=== PATIENT | male | born 1935 | race Caucasian/White ===

== ENCOUNTER 2016-08-09 15:57 | Inpatient (IN) | payer OTHER, MEDICARE ==
--- NOTE | 2016-08-09 17:00 | EDPHY ---
H & P Time Seen by Provider: 08/09/16 16:00 HPI/ROS: CHIEF COMPLAINT: flu-like symptoms HISTORY OF PRESENT ILLNESS: Patient is a 80-year-old male who presents to the emergency department with flu-like symptoms. His symptoms started on Saturday. He began to have stuffed up nose and congestion. He was taking Mucinex. He felt dehydrated. He had intermittent chills with subjective fever. He went saw his primary care physician on Saturday. He states he had a negative flu swab. He developed increasing sleepiness and was nodding off. Today he has a more notable cough (present for 4 days). Nonproductive. The patient feels "muzzy" and "dozes off frequently." He has tenderness palpation of his left jaw. There is no jaw pain at rest. No chest pain. No shortness of breath. No nausea or vomiting. No diarrhea. Patient states he has minimal discomfort occasionally when urinating. No hematuria. No frequency. REVIEW OF SYSTEMS: My complete review of systems is negative except as mentioned in the HPI. Past Medical/Surgical History: Includes pneumonia, shingles, prostate disease, hypertension, pancreatitis Past surgical history: Prostate surgery Social history: The patient was at home. He does not smoke. Smoking Status: Never smoked Physical Exam: Vitals noted. 37.6, 136/74, 110, 18, 95% on room air GENERAL: Well-appearing, in no acute distress, alert. HEENT: Eyes normal to inspection, normal pharynx, no signs of dehydration. Patient has mild erythema on his forehead. He denies any forehead pain. He has had no recent injury. NECK: No thyromegaly, no lymphadenopathy, supple. RESPIRATORY: Clear to auscultation bilaterally, no rales, rhonchi or wheezing. CVS: Regular rate and rhythm, no rubs, murmurs, or gallops. ABDOMEN: Soft, nontender, nondistended, no organomegaly. [place] BACK: Normal to inspection, no CVA tenderness. SKIN: Otherwise normal color, warm, dry. No pallor. See HEENT exam. EXTREMITIES: No pedal edema, no calf tenderness, no Homans sign or cords, no joint swelling. NEURO/PSYCH: [Alert and oriented x3, normal mood and affect, normal motor sensory exam. Constitutional: Initial Vital Signs Temperature (C) 37.6 C 08/09/16 16:09 Heart Rate 110 H 08/09/16 16:09 Respiratory Rate 18 08/09/16 16:09 Blood Pressure 136/74 H 08/09/16 16:09 O2 Sat (%) 95 08/09/16 16:09 O2 Delivery Mode Room Air Allergies/Adverse Reactions: Sulfa (Sulfonamide Antibiotics) Allergy (Verified 08/09/16 16:38) nausea Home Medications: Medication Instructions Recorded ASPIRIN 08/09/16 Glucosamine 08/09/16 Lisinopril 08/09/16 Saw Holt 08/09/16 Medical Decision Making ED Course/Re-evaluation: I met EMS on arrival in took report from the petal shaper hand. I discussed the plan with the patient and answered all his questions. Laboratory studies, chest x- ray, EKG were ordered. I reviewed the patient's laboratory studies. He was [place] [address]. Sodium is low 124. 18 35: When re-evaluated the patient. On re-examination he continues to have the redness on his forehead. He seems to have more redness over his left cheek and left ear. There is mild swelling over the left cheek. It is unclear if this is allergic reaction or infection. He is not taking any new medications or been exposed to anything out of the ordinary. Because of the increased redness, his fever and white count Rocephin 1 g IV was ordered. The patient was also given vancomycin [address] IV contrast was ordered of his face. I discussed the plan with the patient and answered all his questions. He consents. Patient was given Benadryl 25 mg orally and Pepcid 20 mg IV for his redness. I discussed the patient with the hospitalist service, Dr. Rob. He will admit the patient for further evaluation. I discussed the case with the radiologist. He was concerned with the patient's elevated creatinine and CT with IV contrast. The order was changed to a CT without IV contrast. On recheck the patient was stable. No worsening redness. No respiratory distress. Patient has received both Rocephin and vancomycin. Differential Diagnosis: My differential includes but is not limited to influenza, viral syndrome, pneumonia, bronchitis, electrolyte abnormality, sugar abnormality, ACS, acute AK , dehydration - Data Points Laboratory Results: Laboratory Results 08/09/16 17:00 08/09/16 17:00 08/09/16 08/09/16 17:21 17:00 WBC 12.29 H 10^3/uL (3.80-9.50) RBC 4.61 10^6/uL (4.40-6.38) Hgb 14.9 g/dL (13.7-17.5) Hct 41.6 % (40.0-51.0) MCV 90.2 fL (81.5-99.8) MCH 32.3 pg (27.9-34.1) MCHC 35.8 g/dL (32.4-36.7) RDW 13.4 % (11.5-15.2) Plt Count 172 10^3/uL (150-400) MPV 9.5 fL (8.7-11.7) Neut % (Auto) 91.1 H % (39.3-74.2) Lymph % (Auto) 1.8 L % (15.0-45.0) [place] % (Auto) 5.8 % (4.5-13.0) Eos % (Auto) 0.0 L % (0.6-7.6) Baso % (Auto) 0.2 L % (0.3-1.7) Nucleat RBC Rel Count 0.0 % (0.0-0.2) Absolute Neuts (auto) 11.19 H 10^3/uL (1.70-6.50) Absolute Lymphs (auto) 0.22 L 10^3/uL (1.00-3.00) Absolute Monos (auto) 0.71 10^3/uL (0.30-0.80) Absolute Eos (auto) 0.00 L 10^3/uL (0.03-0.40) Absolute Basos (auto) 0.03 10^3/uL (0.02-0.10) Absolute Nucleated RBC 0.00 10^3/uL (0-0.01) Immature Gran % 1.1 % (0.0-1.1) Immature Gran # 0.14 H 10^3/uL (0.00-0.10) PT 15.6 H SEC (12.0-15.0) INR 1.24 H (0.83-1.16) APTT 36.4 SEC (23.0-38.0) VBG Lactic Acid 1.6 mmol/L (0.7-2.1) Sodium 124 L mEq/L (134-144) Potassium 3.7 mEq/L (3.5-5.2) Chloride 89 L mEq/L (97-110) Carbon Dioxide 25 mEq/l (22-31) Anion Gap 10 mEq/L (8-16) BUN 36 H mg/dL (7-23) Creatinine 1.6 H mg/dL (0.7-1.3) Estimated GFR 42 Glucose 99 mg/dL (70-100) Calcium 8.9 mg/dL (8.5-10.4) Total Bilirubin 1.0 mg/dL (0.1-1.4) Conjugated Bilirubin 0.5 mg/dL (0.0-0.5) Unconjugated Bilirubin 0.5 mg/dL (0.0-1.1) AST 37 IU/L (17-59) ALT 60 IU/L (21-72) Alkaline Phosphatase 99 IU/L (38-126) Total Protein 5.7 L g/dL (6.3-8.2) Albumin 3.4 L g/dL (3.5-5.0) Urine Color YELLOW Urine Appearance CLEAR Urine pH 5.0 (5.0-7.5) Ur Specific [place] 1.013 (1.002-1.030) Urine Protein NEGATIVE (NEGATIVE) Urine Ketones TRACE H (NEGATIVE) Urine Blood 1+ H (NEGATIVE) Urine Nitrate NEGATIVE (NEGATIVE) Urine Bilirubin NEGATIVE (NEGATIVE) Urine Urobilinogen NEGATIVE EU (0.2-1.0) Ur Leukocyte Esterase NEGATIVE (NEGATIVE) Urine RBC 1-3 /hpf (0-3) Urine WBC 1-3 /hpf (0-3) Ur Epithelial Cells NONE SEEN /lpf (NONE-1+) Urine Bacteria TRACE H /hpf (NONE SEEN) Urine Glucose NEGATIVE (NEGATIVE) Influenza Typ A,B (DFA) NEGATIVE FOR FLU (NEGATIVE) Medications Given: Discontinued Medications Acetaminophen (Tylenol) 1,000 mg PO EDNOW ONE Stop: 08/09/16 18:36 Last Admin: 08/09/16 18:36 Dose: 1,000 mg Diphenhydramine HCl (Benadryl) 25 mg PO EDNOW ONE Stop: 08/09/16 19:07 Last Admin: 08/09/16 19:17 Dose: 25 mg Ceftriaxone Sodium/Dextrose (Rocephin 1 Gm (Premix)) 50 mls @ 100 mls/hr IV EDNOW ONE PRN Reason: Protocol Stop: 08/09/16 19:06 Last Admin: 08/09/16 18:42 Dose: 50 mls Famotidine/Sodium Chloride (Pepcid 20 Mg (Premix)) 50 mls @ 200 mls/hr IV ONCE ONE Stop: 08/09/16 19:21 Last Admin: 08/09/16 19:17 Dose: 50 mls Departure - Departure Disposition: [facility] Acute Clinical Impression: Weakness, Rash of face, Hyponatremia Fever Qualifiers: Qualifier Code: (R50.81) Fever presenting with conditions classified elsewhere Condition: Good
[2016-08-09 17:13] LABS: % IMMATURE GRANULYOCYTES 1.1 % (0.0-1.1); ABSOLUTE IMMATURE GRANULOCYTES 0.14 10^3/uL (0.00-0.10); ADD DIFF? NO; ADD MORPH? NO; ADD SCAN? NO; ATYPICAL LYMPHOCYTE FLAG 0 (0-99); FRAGMENT RBC FLAG 10 (0-99); HEMATOCRIT 41.6 % (40.0-51.0); HEMOGLOBIN 14.9 g/dL (13.7-17.5); LEFT SHIFT FLG 30 (0-99); LIPEMIA HEMOLYSIS FLAG 90 (0-99); MEAN CELL HEMOGLOBIN 32.3 pg (27.9-34.1); MEAN CELL HEMOGLOBIN CONCENTR. 35.8 g/dL (32.4-36.7); MEAN CELL VOLUME 90.2 fL (81.5-99.8); MEAN PLATELET VOLUME 9.5 fL (8.7-11.7); PLATELET CLUMPS FLAG 10 (0-99); PLATELET COUNT 172 10^3/uL (150-400); RED BLOOD CELL COUNT 4.61 10^6/uL (4.40-6.38); RED CELL DISTRIBUTION WIDTH 13.4 % (11.5-15.2)
[2016-08-09 17:20] LABS: INR 1.24 (0.83-1.16); PROTIME(PATIENT) 15.6 SEC (12.0-15.0)
[2016-08-09 17:21] LABS: ALANINE AMINOTRANSFERASE 60 IU/L (21-72); ALBUMIN 3.4 g/dL (3.5-5.0); ALKALINE PHOSPHATASE 99 IU/L (38-126); ANION GAP 10 mEq/L (8-16); APTT 36.4 SEC (23.0-38.0); ASPARTATE AMINOTRANSFERASE 37 IU/L (17-59); BILIRUBIN-CONJUGATED 0.5 mg/dL (0.0-0.5); BILIRUBIN-UNCONJUGATED 0.5 mg/dL (0.0-1.1); CALCIUM 8.9 mg/dL (8.5-10.4); CARBON DIOXIDE 25 mEq/l (22-31); CHLORIDE 89 mEq/L (97-110); CREATININE 1.6 mg/dL (0.7-1.3); GLOMERULAR FILTRATION RATE 42; GLUCOSE 99 mg/dL (70-100); POTASSIUM 3.7 mEq/L (3.5-5.2); SODIUM 124 mEq/L (134-144); TOTAL PROTEIN 5.7 g/dL (6.3-8.2)
--- NOTE | 2016-08-09 17:31 | DX ---
Chest, PA and Lateral History: Weakness, fatigue, flulike symptoms, suspected infection, sepsis protocol Comparison: none Findings: There is mild bronchial wall thickening. Lung volumes are mildly prominent. There is no foc al infiltrate, consolidation or pleural effusion. Heart size is normal. There is no mass or adenopat hy. Bilateral symmetric nipple shadows are present. Impression: Airways disease.
--- NOTE | 2016-08-09 17:41 | CPEKG ---
Heart Rate: 102 RR Interval: 588 P-R Interval: 172 QRSD Interval: 76 QT Interval: 320 QTC Interval: 417 P Delphos: 78 QRS Delphos: 14 T Wave Delphos: 83 EKG Severity - ABNORMAL ECG - EKG Impression: SINUS TACHYCARDIA EKG Impression: LOW VOLTAGE IN FRONTAL LEADS EKG Impression: ABNORMAL T, CONSIDER ISCHEMIA, LATERAL LEADS Electronically Signed By: Magda Alexis 09-Aug-2016 23:12:35
[2016-08-09 17:42] LABS: COLOR YELLOW; LEUKOCYTE ESTERASE,URINE NEGATIVE (NEGATIVE); NITRITE,URINE NEGATIVE (NEGATIVE)
[2016-08-09 17:54] LABS: BACTERIA TRACE /hpf (NONE SEEN)
[2016-08-09] MEDS ORDERED: ACETAMINOPHEN 500 MG TAB ONE (18:29)
[2016-08-09] MEDS ORDERED: ACETAMINOPHEN 500 MG TAB PO ONE (18:35)
[2016-08-09] MEDS ORDERED: VANCOMYCIN HCL/NORMAL SALINE 250 ML IV ONE (18:37)
[2016-08-09] MEDS ORDERED: diphenhydrAMINE 25 MG CAP PO ONE ×2 (19:06→19:09)
[2016-08-09] MEDS ORDERED: FAMOTIDINE 20 MG/NACL 50 ML IV ONE (19:07)
[2016-08-09] MEDS ORDERED: IOPAMIDOL (ISOVUE-300) 50 ML VIAL IV ONE ×3 (19:15→19:16)
--- NOTE | 2016-08-09 20:35 | CT ---
CT of the Face, without contrast Indication: Left face, jaw and cheek cellulitis Technique: 0.625 mm thick collimated slices were obtained through the face from just below the lizbeth ible to above the frontal sinuses. The data was reconstructed in the sagittal and coronal planes. Dos e reduction techniques were utilized. Findings: There is soft tissue edema the region of the left cheek, left premaxillary area and prefro ntal region, without obvious localized abscess or underlying bone lysis, sclerosis or periostitis. Th e left orbit and intraorbital contents are normal.. The paranasal and mastoid sinuses are well aerat ed. There are no sinus air-fluid levels or bone destruction. There is no mandibular or maxillary jeremy odontal disease. There is limited streak artifact related to dental hardware. There is atheroscleroti c calcification of left greater than right carotid arteries. There is no pathologic cervical adenopa thy. Fat in the pterygopalatine fossa is symmetric and normal. The deep mandibular spaces and some zy gomatic arch soft tissues are symmetric and normal. There is chronic degenerative change of the left temporomandibular joint with eburnation of the glenoid fossae and progressive remottling of the left condylar head. 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 Impression: 1. Cellulitis without obvious abscess or underlying cause. The lack of IV contrast limits the ability to detect a small abscess. 2. Chronic left temporomandibular joint degeneration. General information for patients regarding this examination can be found at [email or web address]. If you have questions or comments about this report, please contact me at [phone] (hospital) or [phone] (cell).
[2016-08-09] MEDS ORDERED: ONDANSETRON 4 MG/2 ML VIAL IVP PRN (22:06)
[2016-08-09] MEDS ORDERED: HYDROCODONE/APAP 5/325 TAB PO PRN (22:06)
[2016-08-09] MEDS ORDERED: LORazepam 2 MG/ML INJ IVP PRN (22:06)
[2016-08-09] MEDS ORDERED: ONDANSETRON DISINTEGRATING 4 MG TAB PO PRN (22:06)
[2016-08-09] MEDS ORDERED: LORazepam 0.5 MG TAB PO PRN (22:06)
[2016-08-09] MEDS ORDERED: NS W/ 20 KCl/L 1,000 ML IV SCH (22:15)
--- NOTE | 2016-08-09 23:00 | GHP ---
[f rep st] HISTORY AND PHYSICAL DATE OF ADMISSION: 08/09/2016 CHIEF COMPLAINT: Cough and fever. HPI: This is an 80-year-old gentleman who presents with a complaint of 3 to 4 days of cough, fever, nasal congestion. He reports he has had intermittent chills and a subjective fever. He saw his [facility] physician on Saturday to start. It resulted in a negative flu swab. Since then, he has de veloped increasing sleepiness and feels he is weak. The illness is notable for a persistent cough, w hich is primarily nonproductive, over the last 4 days. In addition, within 1 day SAND ANALYST day he has deve loped left ear tenderness and pain. Three weeks SAND ANALYST he had the left ear cleaned of wax with a curett e. It resulted in a slight breanna in the ear and he had some bleeding, which was cauterized then 3 day s after the initial cleaning. The area has been fine up until 1 day SAND ANALYST, when he has noted he has te nderness, swelling, and pain on the left side of his face and around his ear. There is no further dr sevilla. Except as noted above, he otherwise describes himself as well and healthy. He has very few health pr oblems. He denies having chest pain, nausea, vomiting, abdominal pain, hematemesis, hematochezia. Rasat pollard had a TURP many years ago and has good urinary outflow and no dysuria. PAST MEDICAL HISTORY: Denies asthma. There is a positive history of hypertension. No history of di abetes or kidney problems. One episode of pneumonia in 2006. PAST SURGICAL HISTORY: A colonoscopy approximately in 1999, in which he had no polyps. He had a pro statectomy in approximately 2004, 2005. ALLERGIES: Sulfa drugs which cause gastrointestinal discomfort. This dates to when he was a child. CURRENT MEDICATIONS: Mucinex, herbal supplementation, aspirin 325 mg, and lisinopril 10/12.5 mg tabl et in the form of Zestoretic. FAMILY HISTORY: Noncontributory. There is no prior history of coronary artery disease. REVIEW OF SYSTEMS: Except as noted above, a 10-point review of systems is entirely negative. SOCIAL HISTORY: He is recently . Lives alone. Does not smoke or drink, and does not use karen gs. PHYSICAL EXAM: GENERAL: This is a pleasant elderly gentleman who appears slightly uncomfortable. V ITAL SIGNS: His blood pressure is normal, pulse rate is 80 and regular, respirations 14 and unlabor ed. He has normal saturation on room air and is afebrile. HEENT: Significant for redness about the left side of his scalp and the left side of his face, with edema and swelling of the left ear pinna and external canal. Examination of the external canal shows that there is cerumen or blood deep with in the canal, and it is tender to pull on the external canal. The right ear is abel with a abel tymp anic membrane. NECK: Supple without meningismus. There is no significant adenopathy palpated in th e submandibular, cervical, or axillary regions. The supraclavicular region in particular is nontende r, and no nodes are noted. CHEST: Chest wall is nontender to palpation. LUNGS: Clear to P and A w ithout wheezing or rales. HEART: Singular S1 and S2. No murmur or gallop. ABDOMEN: Nontender, be nign without masses, tenderness, organomegaly. EXTREMITIES: No edema, cyanosis, or clubbing. LABORATORY: WBC mildly elevated at 12,200. Lactic acid is normal at 1.6. Chemistry panel shows hyp onatremia with a sodium of 124, a normal anion gap of 10. Evidence of acute kidney injury with a cre atinine of 1.6, and an albumin slightly low at 3.4. Urinalysis is entirely normal. Serology shows h e is negative for influenza A and B. IMAGING: Chest x-ray reviewed personally by myself shows normal lung cobos without infiltrate, and a normal-sized heart. Electrocardiogram shows a sinus tachycardia at approximately 102. There is low voltage in the fronta l plane, and there is slightly abnormal T-wave configuration, with suggestion of ST-segment depressio n in V2 and V3. This could suggest ischemia in the lateral leads. ASSESSMENT: 1. Acute febrile illness characterized by 4 days of cough without sputum production, subjective feve r, and some chills. He has a negative flu swab both at the physician's office and here in this faci lity. It is possible this could represent a mycoplasma infection. He has no history of underlying l patt disease, and his chest x-ray is clear. He has a mild leukocytosis which is nonspecific. Given t he initial presentation was clearly for a respiratory infection, we will treat him with Rocephin and azithromycin. The latter will cover for atypicals such as mycoplasma. At this time, he is not cough ing, which would be more characteristic of a mycoplasma infection, but if cough does become prominent it will be treated either with Tessalon Perles or with possibly codeine. 2. Left facial erythema and edema and possible cellulitis. Historically, 3 weeks ago he had a curet te cleaning of wax from his ears, resulting in bleeding. The bleeding was cauterized 3 days followin g that. If has not bothered him up until 1 or 2 days prior to admission. It is possible it is a fac ial cellulitis. The area is swollen and tender. Thus, I have placed him on vancomycin, and will obt ain an ENT consultation in the morning. 3. History of hypertension. Currently, he is normotensive and we will continue his usual antihypert ensive medications. 4. Acute kidney injury. He has an elevated creatinine, which may represent prerenal azotemia. He w ill be given IV fluids, and we will follow this for resolution. 5. Hyponatremia. This may represent acute pulmonary illness along with free water intake rather markus n eating. Again, we will watch this. He will receive IV fluids in the form of normal saline, and ho pefully this will resolve on its own in the course of treatment. 6. Code status is full. 7. DVT prophylaxis will be with Lovenox. 8. Billing. The patient will be admitted to inpatient as it would require more than 2 nights' stay to resolve his medical problems, and obtain an ENT consultation with resolution. /[id number]/MODL
[2016-08-09] MEDS: AZITHROMYCIN IV 500 MG in D5W 250 ML IV SCH (23:24)
[2016-08-10] MEDS: HEPARIN 5,000 UNIT/0.5 ML SYR SC SCH ×3 (05:18→22:13)
[2016-08-10] MEDS: IPRATROPIUM/ALBUTEROL 3 ML DEYVIAL IH SCH ×4 (05:20→21:23)
[2016-08-10] MEDS: guaiFENesin 600 MG TAB.ER PO PRN ×2 (05:34→19:19)
[2016-08-10 05:42] LABS: % IMMATURE GRANULYOCYTES 0.9 % (0.0-1.1); ABSOLUTE IMMATURE GRANULOCYTES 0.11 10^3/uL (0.00-0.10); ADD DIFF? NO; ADD MORPH? NO; ADD SCAN? NO; ATYPICAL LYMPHOCYTE FLAG 0 (0-99); FRAGMENT RBC FLAG 0 (0-99); HEMATOCRIT 40.2 % (40.0-51.0); LEFT SHIFT FLG 50 (0-99); LIPEMIA HEMOLYSIS FLAG 90 (0-99); MEAN CELL HEMOGLOBIN 31.7 pg (27.9-34.1); MEAN CELL HEMOGLOBIN CONCENTR. 34.8 g/dL (32.4-36.7); MEAN PLATELET VOLUME 9.3 fL (8.7-11.7); PLATELET CLUMPS FLAG 0 (0-99); PLATELET COUNT 151 10^3/uL (150-400); RED BLOOD CELL COUNT 4.42 10^6/uL (4.40-6.38); RED CELL DISTRIBUTION WIDTH 13.4 % (11.5-15.2)
[2016-08-10 06:06] LABS: ALANINE AMINOTRANSFERASE 54 IU/L (21-72); ALBUMIN 3.1 g/dL (3.5-5.0); ALKALINE PHOSPHATASE 101 IU/L (38-126); ANION GAP 10 mEq/L (8-16); ASPARTATE AMINOTRANSFERASE 30 IU/L (17-59); BILIRUBIN,TOTAL 0.9 mg/dL (0.1-1.4); CALCIUM 8.7 mg/dL (8.5-10.4); CARBON DIOXIDE 25 mEq/l (22-31); CHLORIDE 92 mEq/L (97-110); CREATININE 1.6 mg/dL (0.7-1.3); GLOMERULAR FILTRATION RATE 42; GLUCOSE 86 mg/dL (70-100); POTASSIUM 3.5 mEq/L (3.5-5.2); SODIUM 127 mEq/L (134-144); TOTAL PROTEIN 5.3 g/dL (6.3-8.2)
[2016-08-10] MEDS: MULTIVITAMINS 1 EACH TAB PO SCH (09:37)
[2016-08-10] MEDS: LISINOPRIL/HCTZ 10/12.5 MG 1 EA TAB PO SCH (09:37)
[2016-08-10] MEDS: AZITHROMYCIN IV 500 MG in D5W 250 ML IV SCH (09:38)
--- NOTE | 2016-08-10 14:19 | HOSPPROG ---
Hospitalist Progress Note Assessment/Plan: 80-year-old male presents emergency room complaints of cough and fever. This is my 1st encounter with the patient, chart reviewed. Patient care discussed with Dr. Su Ritchie of Infectious Disease. # upper respiratory infection Continue supportive management X-ray does not demonstrate definitive pneumonia Patient not complaining of cough today Consider changing antibiotic therapy # facial cellulitis On IV antibiotics Consult Infectious Disease Ear nose and throat consulted # history of hypertension Currently well controlled # hyponatremia Likely secondary to mild dehydration Continue IV fluids Check labs in the morning # acute kidney injury Patient's baseline kidney function on clear Continue to follow laboratory evaluation Continue fluid #History of epistaxis None currently # leukocytosis Acute response # disposition Unclear given need for further IV antibiotic therapy and evaluation Subjective: Feeling better today. No specific complaints of cough. Facial pain less than yesterday. Objective: Vital Signs Temp Pulse Resp BP Pulse Ox 37.3 C 76 15 107/63 96 08/10/16 11:46 08/10/16 12:29 08/10/16 12:29 08/10/16 11:46 08/10/16 12:29 Laboratory Results 08/10/16 05:22 08/10/16 05:22 08/09/16 08/10/16 08/11/16 05:59 05:59 05:59 Intake Total 250 Balance 250 PT 15.6 SEC (12.0-15.0) H 08/09/16 17:00 INR 1.24 (0.83-1.16) H 08/09/16 17:00 - Physical Exam Constitutional: no apparent distress, appears nourished, not in pain Eyes: PERRL, anicteric sclera, EOMI Ears, Nose, Mouth, Throat: moist mucous membranes, hearing normal, other ( Swelling), No ears appear normal Cardiovascular: regular rate and rhythym, tachycardia, No JVD, No edema Respiratory: no respiratory distress, no rales or rhonchi, reduced air movement Gastrointestinal: normoactive bowel sounds, No tenderness, No ascites Skin: warm, no fluctuance, erythema Musculoskeletal: normal joint ROM, no joint effusions, generalized weakness Neurologic: AAOx3 Psychiatric: interacting appropriately, not anxious, not encephalopathic ICD10 Worksheet Patient Problems: Problems Problem Status Diagnosed Fever Acute Hyponatremia Acute Rash of face Acute Weakness Acute
[2016-08-10] MEDS: ASPIRIN EC 325 MG TAB PO SCH (16:11)
[2016-08-10] MEDS: ACETAMINOPHEN 325 MG TAB PO PRN (20:27)
--- NOTE | 2016-08-11 00:43 | GCON ---
[f rep st] CONSULTATION INFECTIOUS DISEASE CONSULTATION DATE OF CONSULTATION: 08/10/2016 REASON FOR CONSULTATION: Left facial cellulitis. HISTORY OF PRESENT ILLNESS: This is an 80-year-old male who was in his usual health until approximately 2 days prior to admission when he started developing malaise, fever to 103, and started noticing his left face swelling. Yesterday evening he felt extreme malaise, worsening swelling. Therefore, he took an ambulance to the emergency room due to the bad weather outside. A couple weeks prior to the onset of this, patient did have a trauma to the left ear associated with curetting the wax out of his ear associated with bleeding. Otherwise, he denies any specific trauma. He has had some intermittent drainage from this ear including blood as well as serous drainage, currently is serous drainage. He has had rhinorrhea and intermittent epistaxis x1 week, mild dry cough. He does not feel short of breath and his symptoms do not feel similar to prior episodes of pneumonia. He denies GI symptoms and generally feels that he is emptying his bladder appropriately without discomfort. Patient denies dental pain. PAST MEDICAL AND SURGICAL HISTORY: 1. Past history of pneumonia. 2. Bacteremia in childhood. 3. 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 4. Pancreatitis 12 years ago that resulted in renal insufficiency. 5. Renal insufficiency. 6. Shingles. 7. Tonsils and adenoids in childhood. ALLERGIES: Sulfa causes GI discomfort. MEDICATIONS: At home: Mucinex herbal supplementation, aspirin, lisinopril. Antibiotics in-house include 1 dose of ceftriaxone, azithromycin 500 mg, vancomycin 1 g. FAMILY HISTORY: Negative for coronary artery disease. SOCIAL HISTORY: Patient is recently in June of 2016 after a 60- year marriage. No tobacco or alcohol. 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 He is currently living alone. PHYSICAL EXAM: VITAL SIGNS: Blood pressure 107/63, heart rate 79, respiratory rate 16, saturation 93% on room air. Temperature 37. 3, while hospitalized his T-max is 38. GENERAL: This is a very pleasant male who appears younger than his stated age. HEENT: Extraocular muscles are intact. No conjunctival hemorrhages. Oropharynx moist mucous membranes. Good dentition. His cranial nerves are intact. It is noticeable that he has erythema of the left face including the left upper eyelid and submental and immediately top portion of his left neck, and he has significant swelling of his left ear. Minimal tenderness to palpation. No fluctuance or lymphadenopathy was palpated. NECK: No meningismus, it was supple. No lymphadenopathy. CARDIOVASCULAR: Regular rate and rhythm. No murmurs. CHEST: Clear to auscultation bilaterally. ABDOMEN: Soft, nontender. Bowel sounds are present. EXTREMITIES: No clubbing , cyanosis, or edema. No joint swelling. No splinter hemorrhages or Janeway Lesions. NEUROLOGICALLY: As above, his cranial nerves were intact. Motor was intact. In fact, the patient has been doing calf raises while he has been in his room. LABORATORY: White count today 11.8, yesterday 12.2. Creatinine is 1.6 which patient reports is his baseline. Sodium was 127, AST 30, ALT 54, albumin 3.1. TSH 1.4. Urinalysis showed no pyuria. Influenza DFA was negative. Chest x-ray showed no focal infiltrates with some airway disease. CT of his face showed no definitive sinus disease, showed cellulitis without underlying abscess or sinus abnormalities, but no IV contrast was given. ASSESSMENT AND PLAN: This is an 80-year-old, relatively healthy male who presents with cellulitis of the left face and ear small are on neck, very bright in appearance, somewhat erysipelas-like. The patient has not received antibiotics in over 10 years. Therefore his risk for MRSA or more resistant GNR such as Pseudomonas is fairly low. Clinically appears to be streptococcal mediated. Would recommend monotherapy with ceftriaxone 1 g IV daily. I would discontinue azithromycin and vancomycin. ENT to evaluate further. I do not have an otoscope today to examine his TM and will try to follow up in next couple days. Await ENT consult. We will continue to follow on a daily basis. Thank you for this consult. /[id number]/MODL MTDD
[2016-08-11] MEDS: IPRATROPIUM/ALBUTEROL 3 ML DEYVIAL IH SCH (05:07)
[2016-08-11 05:40] LABS: % IMMATURE GRANULYOCYTES 0.8 % (0.0-1.1); ABSOLUTE IMMATURE GRANULOCYTES 0.07 10^3/uL (0.00-0.10); ADD DIFF? NO; ADD MORPH? NO; ADD SCAN? NO; ATYPICAL LYMPHOCYTE FLAG 20 (0-99); FRAGMENT RBC FLAG 0 (0-99); HEMATOCRIT 36.9 % (40.0-51.0); HEMOGLOBIN 13.2 g/dL (13.7-17.5); LEFT SHIFT FLG 10 (0-99); LIPEMIA HEMOLYSIS FLAG 90 (0-99); MEAN CELL HEMOGLOBIN CONCENTR. 35.8 g/dL (32.4-36.7); MEAN CELL VOLUME 89.6 fL (81.5-99.8); MEAN PLATELET VOLUME 9.6 fL (8.7-11.7); PLATELET CLUMPS FLAG 20 (0-99); PLATELET COUNT 158 10^3/uL (150-400); RED BLOOD CELL COUNT 4.12 10^6/uL (4.40-6.38); RED CELL DISTRIBUTION WIDTH 13.4 % (11.5-15.2)
[2016-08-11] MEDS: HEPARIN 5,000 UNIT/0.5 ML SYR SC SCH ×3 (05:43→23:54)
[2016-08-11 05:56] LABS: ANION GAP 11 mEq/L (8-16); CALCIUM 8.7 mg/dL (8.5-10.4); CARBON DIOXIDE 22 mEq/l (22-31); CHLORIDE 98 mEq/L (97-110); CREATININE 1.4 mg/dL (0.7-1.3); GLOMERULAR FILTRATION RATE 49; GLUCOSE 87 mg/dL (70-100); POTASSIUM 3.9 mEq/L (3.5-5.2); SODIUM 131 mEq/L (134-144)
[2016-08-11] MEDS: LISINOPRIL/HCTZ 10/12.5 MG 1 EA TAB PO SCH (08:50)
[2016-08-11] MEDS: MULTIVITAMINS 1 EACH TAB PO SCH (08:50)
[2016-08-11] MEDS: guaiFENesin 600 MG TAB.ER PO PRN (08:50)
[2016-08-11] MEDS: CIPROFLOXACIN HCL/DEXAMETH 7.5 ML OTIC DROPS LEFTEAR SCH ×2 (13:27→20:24)
--- NOTE | 2016-08-11 13:41 | HOSPPROG ---
Hospitalist Progress Note Assessment/Plan: 80-year-old male presents emergency room complaints of cough and fever. Patient discussed with ENT. # upper respiratory infection Continue supportive management X-ray does not demonstrate definitive pneumonia Patient not complaining of cough today # facial cellulitis On IV antibiotics, CTX Appreciate Infectious Disease Ear nose and throat consulted # history of hypertension Currently well controlled # hyponatremia Likely secondary to mild dehydration Better with IV fluids Check labs in the morning # acute kidney injury Patient's baseline kidney function unclear Continue to follow laboratory evaluation better today #History of epistaxis None currently # leukocytosis Acute response resolved # disposition Unclear given need for further IV antibiotic therapy and evaluation Subjective: Pt complaining of ear bleeding. Pain better. Feeling better today. Objective: Vital Signs Temp Pulse Resp BP Pulse Ox 37.0 C 73 16 111/64 96 08/11/16 08:00 08/11/16 08:00 08/11/16 08:00 08/11/16 08:00 08/11/16 08:00 Laboratory Results 08/11/16 04:59 08/11/16 04:59 08/10/16 08/11/16 08/12/16 05:59 05:59 05:59 Intake Total 250 850 Balance 250 850 PT 15.6 SEC (12.0-15.0) H 08/09/16 17:00 INR 1.24 (0.83-1.16) H 08/09/16 17:00 - Physical Exam Constitutional: no apparent distress, appears nourished, not in pain Eyes: PERRL, anicteric sclera, EOMI Ears, Nose, Mouth, Throat: moist mucous membranes, hearing normal, No ears appear normal Cardiovascular: regular rate and rhythym, No JVD, No edema Respiratory: no respiratory distress, no rales or rhonchi, clear to auscultation Gastrointestinal: No tenderness, No ascites, No guarding Skin: warm, no fluctuance, erythema Musculoskeletal: full muscle strength, normal joint ROM, no joint effusions Neurologic: AAOx3 Psychiatric: interacting appropriately, not anxious, not encephalopathic ICD10 Worksheet Patient Problems: Problems Problem Status Diagnosed Fever Acute Hyponatremia Acute Rash of face Acute Weakness Acute
--- NOTE | 2016-08-11 14:35 | PCMIDPN ---
Assessment/Plan: Assessment/Plan: 1. Left face/ear cellulitis: - Improving on Ceftriaxone. More concentrated inappearance but other areas are improving - Appreciate ENT's eval/assistance in care. A wick is in the ear now. - Ct face reviewed: no sinus ds. no involvement of orbit or intraorbital contents. no obvious abscess identified. -Blood cx ngtd -wbc improved. -Continue with current care, with close monitoring. -Care coordinated with hospitalist team MEds ceftraixone 1g daily-08/10/16 Subjective: Afebrile. Denies sob, abd pain or diarrhea. Denies eye pain or restriction in eye movements, or change in vision. left ear with mild discomfort. Feels better overall Objective: Vital Signs Temp Pulse Resp BP Pulse Ox 37.0 C 73 16 111/64 96 08/11/16 08:00 08/11/16 08:00 08/11/16 08:00 08/11/16 08:00 08/11/16 08:00 Laboratory Results 08/11/16 04:59 08/11/16 04:59 08/10/16 08/11/16 08/12/16 05:59 05:59 05:59 Intake Total 250 850 Balance 250 850 - Physical Exam General Appearance: alert, no apparent distress EENT: other (no pain with eye movement and no restriction. mild swelling around left eye. left ear is swollen) Respiratory: lungs clear Cardiac/Chest: regular rate, rhythm Extremities: No swelling Abdomen: normal bowel sounds, non-tender, soft, No distended Skin: erythema (left face with most concentrated erythema to mid to upper face, including over eyes. no restrictive eye movements. no conjunctival injections. left ear swollen and erythematous. wick noted within ear. peeling of skin over face/scalp.) ICD10 Worksheet Patient Problems: Problems Problem Status Diagnosed Fever Acute Hyponatremia Acute Rash of face Acute Weakness Acute
--- NOTE | 2016-08-11 17:20 | GCON ---
[f rep st] CONSULTATION HISTORY OF PRESENT ILLNESS: This is an 80-year-old gentleman who presents with a complaint of 3 to 4-day history of cough, fever, and nasal congestion. He also complains of facial swelling, as well as left ear tenderness. The patient was admitted to the hospital on August 09, 2016, for IV antibiotics. The patient has noted improvement in the facial swelling; however, he continues to note left ear complaints. ENT is consulted for evaluation of the left ear. The patient notes that approximately 3 weeks ago, he had his left ear cleaned of wax with a curette. He does note at the time that he developed some bleeding due to instrumentation. Several days later, given the bleeding, he presented to his primary care physician where he requested cautery of the external auditory canal on the left. The patient notes that this seemed to improve the bleeding; however, he did develop increased swelling, as well as otorrhea. Over the last day or two, the patient has noted increased left-sided bloody otorrhea. PAST MEDICAL HISTORY: Denies asthma. Positive history of hypertension. He denies a history of diabetes or other kidney problems. ALLERGIES: Sulfa drugs, which caused GI discomfort. FAMILY HISTORY: Noncontributory. SOCIAL HISTORY: Does not smoke or drink. PHYSICAL EXAM: GENERAL APPEARANCE: This is a pleasant 80-year-old gentleman who is in no acute distress. HEAD: Face does show swelling/erythema of the left side around the patient's temporomandibular joint extending to the infraorbital region. There are no vesicles. EARS: The left ear was examined and found to have significantly erythematous and edematous auricle, as well as external auditory canal. There is no ear proptosis. No mastoid tenderness or bogginess. OTOLOGIC: Exam revealed the tympanic membrane to be intact. He does have significant edema of the external auditory canal with mild otorrhea. Given the amount of edema that the patient has, I did elect to place a wick in the external auditory canal to facilitate drop administration. OROPHARYNX: normal. NEUROLOGIC: Exam shows the facial nerve to be intact. ASSESSMENT AND PLAN: This is an 80-year-old male who presents with left-sided facial cellulitis likely secondary to left-sided otitis externa. The patient does note significant improvement since starting IV antibiotics on admission. I was able to visualize the tympanic membrane on the left, and it appears intact ; however, given the amount of swelling in the external auditory canal, I did elect to place a wick. The wick will likely fall out over the next several days as the swelling reduces. 1. Care per the hospitalist and Infectious Disease. Would recommend Ciprodex ear drops with directions of 4 drops to the left ear twice daily for a total of 1 week. 2. Continue IV antibiotics while in-house. Given amount of swelling the patient does have, would recommend Pseudomonas coverage on discharge, as well, for a total of a 10-day course. 3. If swelling continues, could add IV Decadron 8 mg for a dose or two every 8 hours. 4. If swelling continues or patient fails to continue to improve, would recommend CT temporal bones, though the patient states he has made significant improvement over the last 24 hours. 5. Please give the patient our office phone number, on discharge so that he can follow up with our office. Patient should follow-up with our office this coming week. Will follow along peripherally, please call if there are any changes. Thank you so much for allowing us to participate in the care of this patient. If you have any further questions, please do not hesitate to contact me. /[id number]/MODL MTDD
[2016-08-11] MEDS: ASPIRIN EC 325 MG TAB PO SCH (17:34)
[2016-08-11] MEDS: ACETAMINOPHEN 325 MG TAB PO PRN (20:24)
[2016-08-12] MEDS: HEPARIN 5,000 UNIT/0.5 ML SYR SC SCH ×3 (05:55→21:58)
[2016-08-12] MEDS: MULTIVITAMINS 1 EACH TAB PO SCH (08:33)
[2016-08-12] MEDS: LISINOPRIL/HCTZ 10/12.5 MG 1 EA TAB PO SCH (08:33)
[2016-08-12] MEDS: CIPROFLOXACIN HCL/DEXAMETH 7.5 ML OTIC DROPS LEFTEAR SCH ×2 (08:34→21:58)
--- NOTE | 2016-08-12 12:52 | HOSPPROG ---
Hospitalist Progress Note Assessment/Plan: 80-year-old male presents emergency room complaints of cough and fever. # upper respiratory infection Continue supportive management X-ray does not demonstrate definitive pneumonia Patient not complaining of cough today # facial cellulitis On IV antibiotics, CTX Appreciate Infectious Disease Appreciate ENT consult # history of hypertension Currently well controlled # hyponatremia Likely secondary to mild dehydration Better with IV fluids # acute kidney injury Patient's baseline kidney function unclear Continue to follow laboratory evaluation better #History of epistaxis None currently # leukocytosis Acute response resolved # disposition Unclear given need for further IV antibiotic therapy and evaluation Significantly improved today Await Infectious Disease recommendations for antibiotic therapy Reviewed with ID Subjective: Feeling better today. Less left ear pain. Slept well last night. Objective: Vital Signs Temp Pulse Resp BP Pulse Ox 36.6 C 71 20 121/71 H 92 08/12/16 07:31 08/12/16 07:31 08/12/16 07:31 08/12/16 07:31 08/12/16 07:31 Laboratory Results 08/11/16 04:59 08/11/16 04:59 08/11/16 08/12/16 08/13/16 05:59 05:59 05:59 Intake Total 850 1550 Balance 850 1550 PT 15.6 SEC (12.0-15.0) H 08/09/16 17:00 INR 1.24 (0.83-1.16) H 08/09/16 17:00 - Physical Exam Constitutional: no apparent distress, appears nourished, not in pain Eyes: PERRL, anicteric sclera, EOMI Ears, Nose, Mouth, Throat: moist mucous membranes, hearing normal, No ears appear normal Cardiovascular: regular rate and rhythym, No JVD, No edema Respiratory: no respiratory distress, no rales or rhonchi, reduced air movement Gastrointestinal: No tenderness, No ascites, No guarding Skin: warm, erythema, other (Has sloughing) Musculoskeletal: normal joint ROM, no joint effusions, generalized weakness Neurologic: AAOx3 Psychiatric: interacting appropriately, not anxious, not encephalopathic ICD10 Worksheet Patient Problems: Problems Problem Status Diagnosed Fever Acute Hyponatremia Acute Rash of face Acute Weakness Acute
--- NOTE | 2016-08-12 15:22 | PCMIDPN ---
[id number] to yesterday. - Appreciate ENT's eval/assistance in care. A wick is in the ear now. - Ct face reviewed: no sinus ds. no involvement of orbit or intraorbital contents. no obvious abscess identified. -Blood cx ngtd -wbc improved. -Continue with current care, with close monitoring. -Care coordinated with hospitalist team MEds ceftraixone 1g daily-08/10/16 Subjective: Feeling much better. much less redness overall. also less swelling over face and ear. denies sob, no c/o of vision changes or restirction of EOM. denies diarrhea. Objective: Vital Signs Temp Pulse Resp BP Pulse Ox 36.6 C 71 20 121/71 H 92 08/12/16 07:31 08/12/16 07:31 08/12/16 07:31 08/12/16 07:31 08/12/16 07:31 Laboratory Results 08/11/16 04:59 08/11/16 04:59 08/11/16 08/12/16 08/13/16 05:59 05:59 05:59 Intake Total 850 1550 Balance 850 1550 - Physical Exam General Appearance: alert, no apparent distress EENT: other (marked improvement in degree of erythema overlying face and ear and decrease in swelling. no restriction of EOM. ) Respiratory: lungs clear Cardiac/Chest: regular rate, rhythm Extremities: No swelling Abdomen: normal bowel sounds, non-tender, soft, No distended Skin: other (see above) ICD10 Worksheet Patient Problems: Problems Problem Status Diagnosed Fever Acute Hyponatremia Acute Rash of face Acute Weakness Acute
[2016-08-12] MEDS: ASPIRIN EC 325 MG TAB PO SCH (17:39)
[2016-08-12 18:07] VITALS: RESP 16
[2016-08-13 08:02] VITALS: BP 132/69; PULSE 70; TEMP 98.7; O2SAT 92
[2016-08-13] MEDS: LISINOPRIL/HCTZ 10/12.5 MG 1 EA TAB PO SCH (08:12)
[2016-08-13] MEDS: MULTIVITAMINS 1 EACH TAB PO SCH (08:12)
[2016-08-13] MEDS: HEPARIN 5,000 UNIT/0.5 ML SYR SC SCH (08:13)
[2016-08-13] MEDS: CIPROFLOXACIN HCL/DEXAMETH 7.5 ML OTIC DROPS LEFTEAR SCH (08:16)
--- NOTE | 2016-08-13 09:20 | SOAPPROG ---
SOAP Progress Note Assessment/Plan: Assessment: 80 year old male with much improved facial cellulitis and left otitis externa. I removed wick today as it was falling out. TM intact. Still with edema of the EAC. - Continue ciprodex for a total of 1 week - Continue care per hospitalist and ID - Will sign off at this point -- please have patient call [phone] on discharge in order to arrange follow-up for the end of this week 08/13/16 09:18 Subjective: 80 year old male admitted for facial cellulitis and found to have left otitis externa. Doing much better. "I feel good today". Objective: Vital Signs Temp Pulse Resp BP Pulse Ox 37.1 C 70 16 132/69 H 92 08/13/16 08:00 08/13/16 08:00 08/13/16 08:00 08/13/16 08:00 08/13/16 08:00 Laboratory Results 08/11/16 04:59 08/11/16 04:59 08/12/16 08/13/16 08/14/16 05:59 05:59 05:59 Intake Total 1550 300 Balance 1550 300 PT 15.6 SEC (12.0-15.0) H 08/09/16 17:00 INR 1.24 (0.83-1.16) H 08/09/16 17:00 Significant improvement in erythema/edema of face Wick removed from left EAC as it was falling out. EAC patent. TM intact -- still mild EAC edema Facial nerve intact ICD10 Worksheet Patient Problems: Problems Problem Status Diagnosed Fever Acute Hyponatremia Acute Rash of face Acute Weakness Acute
--- NOTE | 2016-08-13 11:11 | PCMIDPN ---
Assessment/Plan: Assessment/Plan: * Left-sided facial cellulitis: Marked improvement with ceftriaxone. Think can transition to oral Augmentin 875 mg twice daily x7 additional days given has improved without targeted anti pseudomonal therapy. Will schedule follow- up in our office later this week for continued assessment. Side effects of Augmentin reviewed. 08/13/16 11:08 Subjective: Patient feels much better. No facial tenderness or left ear tenderness. Objective: Vital Signs Temp Pulse Resp BP Pulse Ox 37.1 C 70 16 132/69 H 92 08/13/16 08:00 08/13/16 08:00 08/13/16 08:00 08/13/16 08:00 08/13/16 08:00 Laboratory Results 08/11/16 04:59 08/11/16 04:59 08/12/16 08/13/16 08/14/16 05:59 05:59 05:59 Intake Total 1550 300 Balance 1550 300 Ceftriaxone # 4 Blood cultures no growth - Physical Exam General Appearance: alert, no apparent distress EENT: pharynx normal, other (Facial erythema almost entirely resolved with slight aries appearance over left cheek; some early desquamation of skin occurring; left ear with resolving erythema and some desquamation with mild edema; nontender to palpation or with movement; no proptosis), No conjunctival petechiae Neck: supple, other (Erythema fully resolved), No lymphadenopathy (L), No lymphadenopathy (R) ICD10 Worksheet Patient Problems: Problems Problem Status Diagnosed Fever Acute Hyponatremia Acute Rash of face Acute Weakness Acute
--- NOTE | 2016-08-13 13:41 | PDDCSUM ---
Discharge Summary Discharge Summary: Dates of service 08/09-08/13/16 Consultations: ID/ENT Hospital course by problem: # facial cellulitis --has been on IV abx with ctx, transitioning to augmentin for discharge. --will f/u with ID # otitis externa: --has been on abx ear drops which will continue for 1 week post dc, f/u with ENT # history of hypertension Currently well controlled # hyponatremia Likely secondary to mild dehydration, improved # acute kidney injury Patient's baseline kidney function unknown, some improvement with IVF, will need to f/u with PCP #History of epistaxis None currently # leukocytosis Acute response resolved Discharge required > 35 minutes of care, more than half in coordination of care
== END 2016-08-13 13:50 | disposition home or self-care (01) | DRG 863 ==
LOC: EDUNIT# → F3E 20:02 → OBSVTOIN 22:06
PROVIDERS: ADMIT Internal Medicine Pulmonary Disease; ATTEND Internal Medicine Pulmonary Disease
DX: T81.4XXA Infection following a procedure, initial encounter (principal); H60.12 Cellulitis of left external ear; L03.211 Cellulitis of face; E87.1 Hypo-osmolality and hyponatremia; N17.9 Acute kidney failure, unspecified; I10 Essential (primary) hypertension
CPT/HCPCS: 96365; J0456; J0696; J3370; Q9967

== ENCOUNTER → 2017-02-12 | Outpatient (CLI) | payer OTHER, MEDICARE | LOC: CIMAGING 15:50 | PROVIDERS: ATTEND Internal Medicine | DX: M25.551 Pain in right hip (principal); I70.90 Unspecified atherosclerosis; Q65.89 Other specified congenital deformities of hip | CPT/HCPCS: 73502-PO ==

== ENCOUNTER → 2017-02-14 | Outpatient (CLI) | payer OTHER, MEDICARE | LOC: FIMAGING 09:39 | PROVIDERS: ATTEND Internal Medicine | DX: M24.851 Other specific joint derangements of right hip, not elsewhere classified (principal); M65.251 Calcific tendinitis, right thigh; M65.252 Calcific tendinitis, left thigh; M51.86 Other intervertebral disc disorders, lumbar region ==

== ENCOUNTER → 2018-05-08 | Outpatient (CLI) | payer OTHER, MEDICARE | LOC: CIMAGING 10:24 | PROVIDERS: ATTEND Internal Medicine | DX: R47.1 Dysarthria and anarthria (principal); N28.9 Disorder of kidney and ureter, unspecified; I10 Essential (primary) hypertension | CPT/HCPCS: 70450-PO ==

== ENCOUNTER 2018-12-28 17:17 | Inpatient (IN) | payer OTHER, MEDICARE ==
[2018-12-28] MEDS ORDERED: LET GEL TOPICAL 1 EA SYR TP ONE ×2 (17:28→17:48)
[2018-12-28] MEDS ORDERED: NS 1,000 ML IV ONE (17:28)
[2018-12-28] MEDS ORDERED: TRANEXAMIC ACID 1,000 MG/10 ML VIAL TP ONE (17:28)
[2018-12-28 17:45] LABS: PLATELET COUNT 225 10^3/uL (150-400)
[2018-12-28] MEDS ORDERED: LORazepam 2 MG/ML INJ IVP ONE ×2 (17:45→18:58)
[2018-12-28] MEDS ORDERED: LORazepam 2 MG/ML INJ ONE (17:46)
[2018-12-28 17:47] LABS: INR 1.04 (0.83-1.16); PROTIME(PATIENT) 13.2 SEC (12.0-15.0)
--- NOTE | 2018-12-28 18:40 | EDPHY ---
H & P Time Seen by Provider: 12/28/18 17:21 HPI/ROS: Chief complaint. Limited trauma activation HPI. 82-year-old male here by EMS with as limited trauma activation. Patient was out for a walk in his neighborhood and missed a step tripped and fell. He struck his face on a curb. Unsure about loss of consciousness. He is not on blood thinners. Patient has lacerations to his forehead I am bleeding from his nose, cut lip with bleeding from his mouth. He feels that his teeth do not fit together normally posteriorly. Denies neck pain back pain, chest pain, shortness of breath, abdominal pain. No injury to arms or legs. ROS 10 systems were reviewed and negative with the exception of the elements mentioned in the history of present illness Past Medical/Surgical History: Pneumonia, shingles, prostate surgery, chronic renal insufficiency, pancreatitis , hypertension Social History: , nonsmoker, no alcohol Smoking Status: Never smoked Physical Exam: General Appearance: Alert well-developed male moderate distress vital signs stable Eyes: Pupils equal round reactive. Significant periorbital swelling especially on the left. Bruising also on the left. ENT, no hemotympanum or An sign. Bilateral bleeding from both nares No obvious dental trauma. 2 cm lip laceration midline inner lower lip Respiratory: There are no retractions, lungs are clear to auscultation. Cardiovascular: Regular rate and rhythm. Gastrointestinal: Abdomen is soft and nontender, no masses, bowel sounds normal. Neurological: Awake and alert, sensory and motor exams grossly normal. Skin: 3 cm laceration left eyebrow. 2 cm laceration mid forehead. Active bleeding from this laceration. 5 cm x2 horizontal laceration across mid forehead Musculoskeletal: Cervical spine is restrained. No T, L, S spine tenderness Extremities symmetrical, full range of motion. Psychiatric: Patient is oriented X 3, there is no agitation. Constitutional: Initial Vital Signs Temperature (C) 36.6 C 12/28/18 17:15 Heart Rate 90 12/28/18 17:15 Respiratory Rate 16 12/28/18 17:15 Blood Pressure 147/88 H 12/28/18 17:15 O2 Sat (%) 95 12/28/18 17:15 O2 Delivery Mode Room Air Allergies/Adverse Reactions: Sulfa (Sulfonamide Antibiotics) Allergy (Verified 01/05/17 16:38) nausea Home Medications: Medication Instructions Recorded Herbals/Supplements -Info Only 1 ea PO DAILY 08/09/16 Lisinopril/Hctz 10/12.5 mg 1 ea PO DAILY 08/09/16 [Zestoretic/Prinzide 10/12.5MG (*)] Ascorbic Acid [Vitamin C 500 mg 500 mg PO DAILY 12/28/18 (*)] Aspirin EC [Aspirin EC 81 mg (*)] 81 mg PO DAILY 12/28/18 Multivitamins [Multivitamin (*)] 1 each PO DAILY 12/28/18 Medical Decision Making - Diagnostics Imaging Results: Imaging Impressions Cervical Spine CT 12/28/18 17:29 Impression: 1. No acute fractures seen associated with the cervical spine. 2. Widening of the left C2-C3 facet that has developed probably related to facet degenerative change. Consider facet injury of the patient is symptomatic in this region. 3. Disk space narrowing mid to lower cervical spine with associated moderate bilateral neuroforaminal stenosis at C5-C6 as detailed above. Findings discussed with Julio Hensley M.D. at 1851 hour, 12/28/2018. Chest X-Ray 12/28/18 17:29 Impression: 1. No active cardiopulmonary disease seen. Face CT 12/28/18 17:29 Impression: 1. Extensive facial bone fractures appear to represent combination of type I and type II LeFort fractures. 2. No intracranial hemorrhage, mass effect, or definite acute peripheral infarct. 3. Blood products in the maxillary, ethmoid, and right frontal sinuses. If symptoms worsen, additional imaging may be necessary. Findings discussed with Julio Hensley M.D. at 1845 hour, 12/28/2018. Head CT 12/28/18 17:29 Impression: 1. Extensive facial bone fractures appear to represent combination of type I and type II LeFort fractures. 2. No intracranial hemorrhage, mass effect, or definite acute peripheral infarct. 3. Blood products in the maxillary, ethmoid, and right frontal sinuses. If symptoms worsen, additional imaging may be necessary. Findings discussed with Julio Hensley M.D. at 1845 hour, 12/28/2018. CT head and cervical spine reviewed by me and discussed with Radiology normal. Maxillofacial CT however shows extensive facial bone fractures consistent with [place] type 2 fracture Chest x-ray shows no rib fractures or pneumothorax Procedures: IV normal saline. TXA on cotton balls to both nostrils. Procedure: Laceration repair. Verbal consent was obtained from the patient. The 3 cm laceration on the left eyebrow was anesthetized in the usual fashion. The wound was irrigated, draped and explored to its base with a gloved finger. There were no deep structures involved. No tendon injury was identified. The wound was repaired with six 4- 0 prolene sutures. The wound repair was simple. The procedure was performed by myself. Procedure: Laceration repair. Verbal consent was obtained from the patient. The 2 cm laceration on the inner lower lip was anesthetized in the usual fashion. The wound was irrigated, draped and explored to its base with a gloved finger. There were no deep structures involved. No tendon injury was identified. The wound was repaired with four 5-0 vicryl sutures. The wound repair was simple. The procedure was performed by myself. ED Course/Re-evaluation: Serial evaluations patient is beginning to have more respiratory difficulty and somnolence. I have consulted discussed the case with Dr. Ray, trauma surgeon who sees the patient in the ED. I also consulted discussed the case with Dr. Maya for ENT who sees the patient in the ED. In consultation we agree that the concern now is for patient's airway. Anesthesia is contacted comes to the department to see the patient and will intubate the patient. I have ordered etomidate and succinylcholine for intubation. Patient and I prior to intubation discussed imaging study results, treatment plan including recommendation for admission. He expresses understanding and agreement Differential Diagnosis: Significant facial trauma without intracranial injury or intrathoracic or cervical spine injury. Developing and progressive respiratory distress requiring intubation. Critical Care Time: Critical care time exclusive procedures 50 min - Data Points Laboratory Results: Laboratory Results 12/28/18 17:27 12/28/18 17:27 12/28/18 12/28/18 12/28/18 17:27 17: 17: WBC 6.95 10^3/uL 10^3/uL (3.80-9.50) RBC 5.00 10^6/uL 10^6/uL (4.40-6.38) Hgb 16.0 g/dL g/dL (13.7-17.5) Hct 46.4 % % (40.0-51.0) MCV 92.8 fL fL (81.5-99.8) MCH 32.0 pg pg (27.9-34.1) MCHC 34.5 g/dL g/dL (32.4-36.7) RDW 13.2 % % (11.5-15.2) Plt Count 225 10^3/uL 10^3/uL (150-400) MPV 9.4 fL fL (8.7-11.7) Neut % (Auto) 55.3 % % (39.3-74.2) Lymph % (Auto) 28.8 % % (15.0-45.0) [place] % (Auto) 13.1 % H % (4.5-13.0) Eos % (Auto) 1.6 % % (0.6-7.6) Baso % (Auto) 0.6 % % (0.3-1.7) Nucleat RBC Rel Count 0.0 % % (0.0-0.2) Absolute Neuts (auto) 3.85 10^3/uL 10^3/uL (1.70-6.50) Absolute Lymphs (auto) 2.00 10^3/uL 10^3/uL (1.00-3.00) Absolute Monos (auto) 0.91 10^3/uL H 10^3/uL (0.30-0.80) Absolute Eos (auto) 0.11 10^3/uL 10^3/uL (0.03-0.40) Absolute Basos (auto) 0.04 10^3/uL 10^3/uL (0.02-0.10) Absolute Nucleated RBC 0.00 10^3/uL 10^3/uL (0-0.01) Immature Gran % 0.6 % % (0.0-1.1) Immature Gran # 0.04 10^3/uL 10^3/uL (0.00-0.10) PT 13.2 SEC SEC (12.0-15.0) INR 1.04 (0.83-1.16) APTT 31.6 SEC SEC (23.0-38.0) Sodium 129 mEq/L L mEq/L (135-145) Potassium 4.1 mEq/L mEq/L (3.5-5.2) Chloride 93 mEq/L L mEq/L (97-110) Carbon Dioxide 22 mEq/l mEq/l (22-31) Anion Gap 14 mEq/L mEq/L (6-14) BUN 43 mg/dL H mg/dL (7-23) Creatinine 1.4 mg/dL H mg/dL (0.7-1.3) Estimated GFR 48 Glucose 68 mg/dL L mg/dL (70-100) Calcium 9.6 mg/dL mg/dL (8.5-10.4) Medications Given: Fentanyl/Sodium Chloride (Fentanyl 10 Mcg/Ml (Premix)) 100 mls @ 0 mls/hr IV CONT AKIL; Per Protocol PRN Reason: Protocol Stop: 01/07/19 19:59 Last Admin: 12/28/18 20:31 Dose: 100 mls Propofol (Diprivan 10 Mg/Ml (Premix)) 100 mls @ 0 mls/hr IV CONT AKIL; Per Protocol PRN Reason: Protocol Stop: 06/26/19 19:59 Last Admin: 12/28/18 20:27 Dose: 100 mls Discontinued Medications Dexamethasone (Decadron Injection) 10 mg IVP ONCE ONE Stop: 12/28/18 19:19 Last Admin: 12/28/18 19:24 Dose: 10 mg Etomidate (Etomidate) 20 mg IVP ONCE ONE Stop: 12/28/18 20:12 Last Admin: 12/28/18 20:17 Dose: 20 mg Sodium Chloride (Ns) 1,000 mls @ 0 mls/hr IV ONCE ONE; Wide Open PRN Reason: Protocol Stop: 12/28/18 17:29 Last Admin: 12/28/18 17:46 Dose: 1,000 mls Lorazepam (Ativan Injection) 0.5 mg IVP EDNOW ONE Stop: 12/28/18 17:46 Last Admin: 12/28/18 17:48 Dose: 0.5 mg Lorazepam (Ativan Injection) 1 mg IVP ONCE ONE Stop: 12/28/18 18:59 Last Admin: 12/28/18 19:02 Dose: 1 mg Succinylcholine Chloride (Quelicin) 80 mg IVP EDNOW ONE Stop: 12/28/18 20:11 Last Admin: 12/28/18 20:17 Dose: 80 mg Tetracaine/Epinephrine/Lidocaine (Let Gel Topical) 2 ea TP EDNOW ONE Stop: 12/28/18 17:49 Last Admin: 12/28/18 17:50 Dose: 2 ea Tranexamic Acid (Cyklokapron) 500 mg TP EDNOW ONE Stop: 12/28/18 17:29 Last Admin: 12/28/18 17:47 Dose: 500 mg Departure - Departure Disposition: [facility] Inpatient Acute Clinical Impression: Intubation of airway performed without difficulty Facial trauma Qualifiers: Encounter type: initial encounter Qualified Code(s): S09.93XA - Unspecified injury of face, initial encounter Face lacerations Qualifiers: Encounter type: initial encounter Qualified Code(s): S01.81XA - Laceration without foreign body of other part of head, initial encounter Condition: Fair
--- NOTE | 2018-12-28 19:15 | PDCONSULT ---
Nursery Nurse Note: CC: fell, trauma, medical mgmt We have been consult on this pt who is an 82-year-old male who is being admitted to the Trauma service following a mechanical fall while walking today. He's suffered multiple fractures and lacerations. He has a hx of HTN and Chronic renal insufficiency. He denies fever, cp, sob, n/v/d, focal weakness Past Medical/Surgical History: Pneumonia, shingles, prostate surgery, chronic renal insufficiency, pancreatitis , hypertension Social History: , nonsmoker, no alcohol FmHx: non contributory ROS: a 10 point review of system is positive per above and otherwise negative PE: VS reviewed and stable General Appearance: Alert well-developed male moderate distress Eyes: Pupils equal round reactive. Significant periorbital swelling especially on the left. Bruising also on the left. Laceration to left eye brow , repaired ENT, Nasal rocket in place Bilateral Respiratory: normal work of breathing, intermittent stertor Cardiovascular: Regular rate and rhythm. Gastrointestinal: Abdomen is soft and nontender, no masses, bowel sounds normal. Neurological: Awake and alert, sensory and motor exams grossly normal. Skin: warm Extremities symmetrical, full range of motion. no edema Psychiatric: Patient is oriented X 3, anxious Labs: reviewed Na: 129 Cr: 1.4 BUN: 43 Glucose 68 A/P #S/p mechanical fall with multiple injuries #HTN, BP currently appropriate. Will await medication list #Chronic Renal insufficiency: Baseline Cr is around 1.4-1.6. He is currently at baseline. BUN is noted to be slightly elevated and he has received IVF in the ER #Upper Airway obstruction: -Trauma/Anesthesiology considering intubation #Anxiety: Benzo's PRN #Hyponatremia, looks Euvolemic -Likely chronic -will check urine studies Plan: Trauma mgmt per primary Pain control Appropriate home meds We will follow along. Thank you for this consultation
[2018-12-28] MEDS ORDERED: DEXAMETHASONE 10 MG/ML VIAL IVP ONE (19:18)
[2018-12-28] MEDS ORDERED: DEXAMETHASONE 10 MG/ML VIAL ONE (19:21)
[2018-12-28] MEDS ORDERED: LORazepam 2 MG/ML INJ IVP PRN (19:47)
[2018-12-28] MEDS ORDERED: ONDANSETRON DISINTEGRATING 4 MG TAB PO PRN (19:47)
[2018-12-28] MEDS ORDERED: ONDANSETRON 4 MG/2 ML VIAL IVP PRN (19:47)
[2018-12-28] MEDS ORDERED: NALOXONE HCL 0.4 MG/ML INJ IVP PRN (19:47)
[2018-12-28] MEDS ORDERED: hydrALAZINE 20 MG/ML VIAL IVP PRN (19:53)
[2018-12-28] MEDS ORDERED: fentaNYL 100 MCG/2 ML INJ ONE (20:06)
[2018-12-28] MEDS ORDERED: PROPOFOL 200 MG/20 ML VIAL ONE (20:10)
[2018-12-28] MEDS ORDERED: ETOMIDATE 40 MG/20 ML INJ ONE (20:10)
[2018-12-28] MEDS ORDERED: SUCCINYLCHOLINE CHLORIDE 200 MG/10 ML SYR IVP ONE (20:10)
[2018-12-28] MEDS ORDERED: SUCCINYLCHOLINE CHLORIDE 200 MG/10 ML VIAL IVP ONE (20:10)
[2018-12-28] MEDS ORDERED: ETOMIDATE 40 MG/20 ML INJ IVP ONE (20:11)
[2018-12-28] MEDS ORDERED: PROPOFOL 200 MG/20 ML VIAL IVP ONE ×2 (20:19→20:22)
[2018-12-28] MEDS ORDERED: fentanYL/NACL/100 ML BAG IV ONE (20:21)
[2018-12-28] MEDS ORDERED: PROPOFOL/EMULSION 1,000 MG/100 ML BOTTLE IV ONE (20:23)
[2018-12-28] MEDS: PROPOFOL/EMULSION 100 ML IV SCH (20:27)
[2018-12-28] MEDS: fentaNYL/NACL 100 ML IV SCH (20:31)
[2018-12-28] MEDS ORDERED: fentaNYL 100 MCG/2 ML INJ IVP ONE (20:38)
[2018-12-28] MEDS ORDERED: TRANEXAMIC ACID 1,000 MG/10 ML VIAL ONE (21:04)
--- NOTE | 2018-12-28 21:34 | GHP ---
[f rep st] HISTORY AND PHYSICAL DATE OF ADMISSION: 12/28/2018 CHIEF COMPLAINT: Fall. HISTORY OF PRESENT ILLNESS: The patient is an 82-year-old man who was walking in the neighborhood wh en he fell onto his face. PAST MEDICAL HISTORY: Hypertension, chronic renal insufficiency. In the ER, I noticed that he was v mac anxious, had increased work of breathing. PAST SURGICAL HISTORY: Prostate surgery. SOCIAL HISTORY: No tobacco use. . FAMILY HISTORY: Noncontributory. REVIEW OF SYSTEMS: Very difficult to obtain. He is wriggling in bed. He sometimes says that it is difficult to breathe. He sometimes says that he has some swelling. His vision is relatively intact. His hearing is intact. No long bone tenderness. PHYSICAL EXAMINATION: VITAL SIGNS: 36.6, 90, 147/88, 16, 95%. GENERAL: Pleasant, sitting curled i n bed, rocking back and forth and [id number], anxious, somewhat garbled speech. HEENT: Obvious la cerations to the face. Ecchymosis bilateral eyes. His right eye can open more than his left. His l eft requires assist of both the upper and lower eyelid. Ears: No hemotympanum. Nose: He has blood in his nose now. Uvula is swollen. His posterior pharynx has blood in it. His teeth do not fit to gether normally. He does have midface instability and swelling. NECK: No cervical spine tenderness . LUNGS: Shallow breathing but clear. CARDIAC: Regular rate. ABDOMEN: Soft. MUSCULOSKELETAL: Normal nails. SKIN: He has ecchymosis over bilateral knees. He has a skin tear on his left 5th met acarpal. He has multiple lacerations over his face. NEURO: Grossly intact. PSYCH: Anxious. RESULTS REVIEWED: I personally reviewed the results of his CT scan. He had a CT scan of his head, C -spine, and max face. There is no intracranial injury. He has extensive facial bone fractures, whic h appear to be LeFort II fractures. He had nasal bone fracture, maxillary sinus, left orbital alveol ar ridge, pterygoid plates. His INR is normal. His creatinine is 1.4. IMPRESSION AND PLAN: 82-year-old status post fall. He is having increasing work of breathing. I am worried that he will lose his airway, and so I contacted Anesthesia. I also consulted Dr. Bonilla. I stayed with the patient while waiting for him to be evaluated. In the emergency room, Dr. Hutton w as able to intubate him. Dr. Bonilla and I were available for a cric, possible tracheostomy if there was difficulty with the intubation or he lost his airway with the paralytic. He is on fentanyl, pro pofol, Decadron every 12 hours, Unasyn. Tertiary survey will be performed. He will likely remain in tubated for at least the next 36 hours. Surgery will need to be delayed for about a week for traci swenson to go down. I spent over 2 hours' critical care time with the patient directly. /[id number]/MODL
[2018-12-28] MEDS: NS W/ 20 KCl/L 1,000 ML IV SCH (22:08)
[2018-12-29] MEDS: CHLORHEXIDINE GLUCONATE 15 ML UDL PO SCH ×3 (00:17→21:52)
[2018-12-29] MEDS: FAMOTIDINE 20 MG/NACL 50 ML IV SCH ×2 (00:23→21:52)
--- NOTE | 2018-12-29 02:30 | PDANEPAE ---
ANE Past Medical History - Pulmonary History Hx Oxygen in Use at Home: No Hx Sleep Apnea: No - Endocrine History Hx Diabetes: No Obesity: no ANE Review of Systems Review of Systems: ANE Patient History - Allergies Allergies/Adverse Reactions: Sulfa (Sulfonamide Antibiotics) Allergy (Verified 08/09/16 16:38) nausea - Home Medications Home medications: home medication list seen and reviewed Home Medications: Herbals/Supplements -Info Only 1 ea PO DAILY 08/09/16 [Last Taken 08/09/16] Lisinopril/Hctz 10/12.5 mg [Zestoretic/Prinzide 10/12.5MG (*)] 1 ea PO DAILY 12/19 [Last Taken 08/09/16] Ascorbic Acid [Vitamin C 500 mg (*)] 500 mg PO DAILY 12/28/18 [Last Taken Unknown] Aspirin EC [Aspirin EC 81 mg (*)] 81 mg PO DAILY 12/28/18 [Last Taken Unknown] Multivitamins [Multivitamin (*)] 1 each PO DAILY 12/28/18 [Last Taken Unknown] - NPO status NPO Status: no food or drink >8 hours - Anes Hx Anes Hx: no prior problems - Smoking Hx Smoking Status: Never smoked ANE Labs/Vital Signs - Labs Result Diagrams: 12/28/18 17:27 12/28/18 17:27 - Vital Signs Blood Pressure: 136/58 Heart Rate: 58 Respiratory Rate: 14 O2 Sat (%): 100 Height: 172.7 cm Weight: 61.23 kg ANE Physical Exam - Airway Neck exam: decreased ROM Mallampati Score: Class 4 (Maxillary fx makes it difficult for him to open mouth.) Mouth exam: poor dentition (There seems to be some chipping of lower incisors.) , small mouth opening - Pulmonary Pulmonary: respiratory distress (Airway obstruction at level of soft palate; uvula swollen.) - Cardiovascular Cardiovascular: regular rate and rhythym ANE Anesthesia Plan Anesthesia Plan: general endotracheal anesthesia (Glidescope, ENT surgeon scrubbed and tracheotomy tray ready.)
--- NOTE | 2018-12-29 02:32 | POSTANESTH ---
Post Anesthetic Evaluation Cardiovascular Status: Normal, Stable, Similar to Pre-Op Cond Respiratory Status: Requires Airway Assist (Easily intubated with low-profile GlideScope blade on first attempt. VS stable throughout, oxygen sat did not drop below 98%.) Level of Consciousness/Mental Status: Unconscious Complications Possibly Related to Anesthesia: None Noted
--- NOTE | 2018-12-29 04:00 | GCON ---
[f rep st] CONSULTATION DATE OF CONSULTATION: 12/28/2018 CHIEF COMPLAINT: Facial trauma. HISTORY OF PRESENT ILLNESS: This is a very pleasant 82-year-old man who apparently was walking and t ripped over a curb and fell and sustained significant facial trauma. He was brought to the ER. It d oes not sound like he lost consciousness. He had significant facial lacerations that were initially sewn up by the ER and a CT scan was done of the face showing severe midface fractures bilaterally. H e had no intracranial injuries. I was called for evaluation of the facial fractures as well as evalu ation of his airway. Per the ER, he was having some subjective sensation of shortness of breath. He did not have any desaturations and was in the mid 90s throughout their evaluation, but he had extens cathy swelling of the mid face on exam and on the CT scan. He has been evaluated by Trauma Surgery. PAST MEDICAL HISTORY: See list. ALLERGIES: Sulfa. REVIEW OF SYSTEMS: Positive for facial pain as well as some numbness and subjective feeling of short ness of breath. He denies any other significant symptoms to me. PHYSICAL EXAMINATION: He is awake and alert. He is in some minimal distress. His saturations are 9 0%. He has extensive facial swelling and lacerations with 2 lacerations over the glabella that are u sing significantly. He also has some significant oozing from his nose on both sides. Exam of the ea rs show intact TM, no blood within the external auditory canal, but he does have a hemotympanum on th e left. Oral cavity shows a tongue that is mobile and midline. He has a significant laceration of t he midline lower lip that has some Vicryl sutures within this area. He has severe edema of the palat e and the uvula. On evaluation, I can see a minimal amount of posterior oropharynx, but the uvula loo ks to be bivalving whenever he breathes in. He has an open bite deformity. It is hard to determine facial function secondary to the extensive swelling. He is able to have normal vision with the right eye, but the left eye I was unable to evaluate secondary to extensive swelling. He has ecchymosis o demarco bilateral eyes as well as the nose and severe cheek swelling. Neck is without crepitus. No rob s, but he does have a fairly low-lying larynx with a minimal amount of space between the cricoid, and the sternal notch. IMAGING: Imaging shows a combination of bilateral LeFort 1 and 2 fractures as well as some extensive left orbital fractures and extensive swelling and blood within the sinuses. ASSESSMENT AND PLAN: This is a patient who has a combination of bilateral LeFort 1 and 2 fractures. He is noted to have significant edema of his palate and uvula. He is having some subjective shortne ss of breath and has baseline anxiety. Based on evaluation of his oropharynx, CT and discussion with Dr. Griggs and Dr. Hutton with Anesthesia it was felt he would be safest to intubate at least for the n ext 24 hours to allow some of the swelling to go down and to secure an airway. So after that the dec ision was made, he was moved to the [facility]. Informed consent was obtained verbally. Dr. Hutton p lanned to do an awake fiberoptic intubation with myself standing by if there was a need for a tracheo stomy. The trach set was setup with all the necessary equipment, although ultimately Dr. Hutton was a ble to intubate the patient without need for any surgical airway. After intubation, I evaluated his f acial lacerations a little bit more, and he had some lacerations that required suturing and so this w as done. Please see the procedure note underneath this. The patient will be put on Unasyn. He is go ing to be intubated for at least 24 hours or until Saturday. He has gotten some Decadron now and will get some more throughout the next 24 hours. He will need repair of these facial fractures, but it w ill need to be done in 5-10 days after the swelling has gone down enough to allow that to be done mor e efficiently. Please call if you have any other questions or concerns, and I will continue to follo w patient. PROCEDURE: After evaluation of the face, there were noted to be 2 lacerations over the glabella, bot h with significant oozing. Betadine was used to clean these areas off and then about 4 cc of 1% lido getachew with 1:200,000 epinephrine was injected into the area of the 2 lacerations. He also had some l acerations over the left brow that have been sutured. There are a couple of areas that were open and continuing to ooze and so some lidocaine was placed in this area too after cleaning with Betadine an d a 5-0 Prolene was used to close the 2 glabellar lacerations in a running fashion using a 5-0 Prolen e for the skin. Each laceration was about 3-4 cm in length and then there was a very small laceratio n over the dorsum of the nose that was about 5 mm. This was closed with a running 5-0 Prolene as wel l and then a couple interrupted sutures were placed around the previously placed sutures over the lef t brow to get better approximation and less oozing. After this was done, the area was cleaned again with Betadine and cleaned off. I will give wound care instructions to the nurses for the ICU and the sutures will need to be removed in about 7 days. /[id number]/MODL
[2018-12-29] MEDS: PROPOFOL/EMULSION 100 ML IV SCH ×2 (04:50→16:59)
[2018-12-29 05:05] LABS: PLATELET COUNT 126 10^3/uL (150-400)
--- NOTE | 2018-12-29 07:46 | TRAUMAPNT ---
Trauma Tertiary Progress Note New Findings: no new findings. Unable to assess with verbal due to intubation. Assessment/Plan: this is an 83-year-old gentleman who tripped on a curb and struck his face. He has a combination of LeFort I and II fractures bilaterally seen in consultation by Dr. Bonilla ENT intubated for potential airway compromise. Will be intubated until swelling subsides. Likely repair in1 week. Ophthalmology yet to see Intubated Bilateral ecchymoses (raccoon eyes) Regular rate and rhythm Clear to auscultation Abdomen soft nontender nondistended Extremities without evidence of long bone fractures no new bruises or abrasions. stable bilateral knee contusions No pain to palpation of long bones abdomen and thorax or pelvis stable for now Keep intubated until swelling goes down 2-3 days Anticipate ORIF next week Ophthalmology consult pending Objective: Vital Signs Temp Pulse Resp BP Pulse Ox 36.5 C 61 14 107/57 L 98 12/29/18 07:00 12/29/18 07:00 12/29/18 07:00 12/29/18 07:00 12/29/18 07:00 Laboratory Results 12/29/18 04:40 12/29/18 04:40 12/28/18 12/29/18 12/30/18 05:59 05:59 05:59 Intake Total 2641.5 Output Total 830 Balance 1811.5 PT 13.2 SEC (12.0-15.0) 12/28/18 17:27 INR 1.04 (0.83-1.16) 12/28/18 17:27
--- NOTE | 2018-12-29 09:05 | GCON ---
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 HISTORY OF PRESENT ILLNESS: The patient is an 83-year-old white male with a past medical history of hypertension and chronic renal insufficiency. He presented to the emergency room after falling on hi s face while apparent walking his dog. He was brought to the emergency room, was found to have incre asing work of breathing. There was concern about him losing his airway from swelling, and he was sub sequently intubated with Anesthesia. ENT was also present for possible tracheostomy/cricothyrotomy. This did not occur. He was admitted to the intensive care unit, placed on Decadron and antibiotics. He will require surgery, but this will be put off until his swelling reduces. He is currently jyoti kaela on mechanical ventilation. All history is gleaned from the medical record. REVIEW OF SYSTEMS: Ten-point review of systems was unable to be performed secondary to sedation and mechanical ventilation. PAST MEDICAL HISTORY: Chronic renal insufficiency and hypertension. FAMILY HISTORY: Noncontributory. SOCIAL HISTORY: No history of tobacco use. Unknown alcohol use. He is . PHYSICAL EXAMINATION: VITAL SIGNS: Blood pressure is 81/42, pulse 65, respirations 15, temperature 36.8, oxygen saturation 99% on 40% mechanical ventilation. GENERAL: He is a well-developed, elderly white male who is sedated and on mechanical ventilation. HEENT: He has significant swelling and co ntusion of his face. Endotracheal tube is in good position. NECK: In a C-collar. HEART: Regular rate and rhythm with a 2/6 systolic murmur left sternal border without radiation. LUNGS: Diminished breath sounds but no wheeze. ABDOMEN: Soft, nontender. Bowel sounds are present. EXTREMITIES: N o clubbing, cyanosis, or edema. LABORATORIES: White count is 8.2, hemoglobin 11, hematocrit 33, platelet count is 126. Sodium 128, potassium 4.4, chloride 100, CO2 is 19, BUN 36, creatinine 1.2, glucose is 151. Arterial blood gas: pH 7.38, pCO2 of 36, pO2 of 104, bicarb 22, oxygen saturation is 98%. This is on an IMV of 14, tida l volume 450, and +5 of PEEP and 40%. RADIOGRAPHS: CT scan head shows an extensive facial bone fractures with a type 1 and type 2 LeFort. No intracranial hemorrhage or mass effect present. There are blood products in the maxillary, ethmo id and frontal sinuses. Chest x-ray is clear. Endotracheal tube is in good position. Also, there i s mild elevation of the right hemidiaphragm. IMPRESSION: 1. Status post fall. 2. Status post significant facial trauma with fractures. 3. Acute respiratory failure secondary to above. 4. History of hypertension. 5. History of chronic renal sufficiency. 6. Hyponatremia. 7. Hyperglycemia. 8. Mild renal insufficiency. RECOMMENDATIONS: 1. Continue mechanical ventilation for now. This will require approximately 72 hours. 2. Agree with IV steroids. Continue Decadron. 3. IV antibiotics as you are doing. 4. Adequate sedation. 5. IV hydration. 6. Blood sugar control. 7. Appreciate ENT evaluation. Thank you very much for allowing me to participate in the care of this patient. Will follow along wi th you. Approximately 45 minutes of critical care time spent with the patient. /[id number]/MODL
--- NOTE | 2018-12-29 09:29 | HOSPPROG ---
Hospitalist Progress Note Assessment/Plan: # hypotension - improved with NS bolus; continue to monitor for sepsis # airway obstruction, respiratory failure requiring intubation - cont ventilator support - cont fentanyl and propofol - cont unasyn and decadron - possible intubation tomorrow # facial fractures and lacerations s/p repair by ent # fall - appears mechanical but will take more history when he is extubated - cont tele # ABLA - no need for transfusion now # hypoNa - somewhat chronic - suspect SIADH but may be a component of hypovolemia - follow daily # htn - hold meds Subjective: hypotension, improved with NS bolus Objective: Vital Signs Temp Pulse Resp BP Pulse Ox 36.6 C 66 20 102/55 L 98 12/29/18 08:00 12/29/18 08:40 12/29/18 08:40 12/29/18 08:40 12/29/18 08:40 Laboratory Results 12/29/18 04:40 12/29/18 04:40 12/28/18 12/29/18 12/30/18 05:59 05:59 05:59 Intake Total 2641.5 500 Output Total 830 Balance 1811.5 500 PT 13.2 SEC (12.0-15.0) 12/28/18 17:27 INR 1.04 (0.83-1.16) 12/28/18 17:27 35 mins bedside CC time managing hypotension and respiratory failure requiring intubation - Physical Exam Constitutional: other (intubated, sedated) Ears, Nose, Mouth, Throat: other (multiple facial bruises and lacerations) Cardiovascular: regular rate and rhythym, no murmur, rub, or gallop Respiratory: other (intubated), No no rales or rhonchi, No expiratory wheeze Gastrointestinal: soft, non-tender abdomen, no palpable masses, No guarding, No rebound, No distension ICD10 Worksheet Patient Problems: Problems Problem Status Onset Weakness Acute Rash of face Acute Fever Acute Hyponatremia Acute Facial trauma Acute Intubation of airway performed without difficulty Acute Face lacerations Acute
[2018-12-29] MEDS: NS W/ 20 KCl/L 1,000 ML IV SCH ×2 (09:55→11:46)
--- NOTE | 2018-12-29 10:53 | ASMTCMCOM ---
CM Note CM Note Notes: Patient admitted w facial trauma after falling. He also displayed increasing WOB in ED and was subsequently intubated. ENT evaluated and is planning for surgery in 5-10 days when swelling has subsided. Lacerations repaired in ED. Patient lives alone. and RN have spoken w his daughter Anny who lives in [place]. We destiney stay in touch w her as discharge needs become clear. PT/OT/SNOW TECHNICIAN ordered and pending. Date Signed: 12/29/2018 10:52 AM Electronically Signed By:Maria Isabel Shane RN
[2018-12-29] MEDS ORDERED: NS BOLUS 500 ML (Wide open) IV ONE (11:00)
[2018-12-29] MEDS ORDERED: NS 1,000 ML IV ONE (11:00)
[2018-12-29] MEDS: DEXAMETHASONE 10 MG/ML VIAL IVP SCH ×2 (11:12→21:52)
[2018-12-29] MEDS: AMPICILLIN/SULBACTAM 1.5 GM in NS 50 ML IV SCH ×3 (13:40→23:05)
[2018-12-29] MEDS ORDERED: AMPICILLIN/SULBACTAM 1.5 GM in NS 50 ML IV SCH ×2 (22:30)
[2018-12-30] MEDS: fentaNYL/NACL 100 ML IV SCH (02:13)
[2018-12-30] MEDS: NS W/ 20 KCl/L 1,000 ML IV SCH (02:14)
[2018-12-30 04:10] LABS: PLATELET COUNT 117 10^3/uL (150-400)
[2018-12-30] MEDS: AMPICILLIN/SULBACTAM 1.5 GM in NS 50 ML IV SCH ×4 (05:38→23:22)
[2018-12-30] MEDS: CHLORHEXIDINE GLUCONATE 15 ML UDL PO SCH ×2 (07:45→22:50)
[2018-12-30] MEDS: DEXAMETHASONE 10 MG/ML VIAL IVP SCH (08:43)
--- NOTE | 2018-12-30 08:54 | TRAUMAPN ---
Trauma Progress Note Assessment/Plan: 83yo M s/p fall c LeFort 1/2 fx, intubated 2/2 airway swelling Neuro: following commands, states pain is controlled. Exam otherwise nonfocal Pulm: Intubated, minimal vent settings. Plan to extubate today which is cleared per ENT Facial Fx: working on outpatient follow up. Irene has contacted surgeon at to have patient fu next week for definitive repair CV: HDS Abdomen: soft, ND, NT. Swallow, then diet Renal: medel, destiney remove once extubated Heme: stable Id: afebrile Ortho: facial fx as above Dispo: extubate, ophtho eval once able to participate Subjective: intubated, following commands Objective: Vital Signs Temp Pulse Resp BP Pulse Ox 36.6 C 58 L 14 113/55 L 100 12/30/18 08:00 12/30/18 08:00 12/30/18 08:00 12/30/18 08:00 12/30/18 08:00 Laboratory Results 12/30/18 04:00 12/30/18 04:00 12/29/18 12/30/18 12/31/18 05:59 05:59 05:59 Intake Total 2641.5 3218.5 Output Total 830 1775 75 Balance 1811.5 1443.5 -75 PT 13.2 SEC (12.0-15.0) 12/28/18 17:27 INR 1.04 (0.83-1.16) 12/28/18 17:27
--- NOTE | 2018-12-30 10:03 | HOSPPROG ---
Hospitalist Progress Note Assessment/Plan: # hypotension - resolved with fluid bolus # fever/leukocytosis - unclear etiology - check BCx, CXR - he is on unasyn # airway obstruction, respiratory failure requiring intubation - plan to extubate today when cleared by ENT - cont fentanyl and propofol - cont unasyn and decadron # facial fractures and lacerations s/p repair by ent - ophtho eval per trauma # fall - appears mechanical but will take more history when he is extubated - cont tele # ABLA - no need for transfusion now # hypoNa - much better today # htn - hold meds Subjective: responds to voice commands Objective: Vital Signs Temp Pulse Resp BP Pulse Ox 36.6 C 58 L 14 113/55 L 100 12/30/18 08:00 12/30/18 08:00 12/30/18 08:00 12/30/18 08:00 12/30/18 08:00 Laboratory Results 12/30/18 04:00 12/30/18 04:00 12/29/18 12/30/18 12/31/18 05:59 05:59 05:59 Intake Total 2641.5 3218.5 Output Total 830 1775 350 Balance 1811.5 1443.5 -350 PT 13.2 SEC (12.0-15.0) 12/28/18 17:27 INR 1.04 (0.83-1.16) 12/28/18 17:27 high risk - Physical Exam Constitutional: uncomfortable Ears, Nose, Mouth, Throat: other (multiple ecchymoses; ET tube) Cardiovascular: regular rate and rhythym, no murmur, rub, or gallop Respiratory: no respiratory distress, no rales or rhonchi, clear to auscultation Gastrointestinal: soft, non-tender abdomen, no palpable masses, No guarding, No rebound, No distension ICD10 Worksheet Patient Problems: Problems Problem Status Onset Weakness Acute Rash of face Acute Fever Acute Hyponatremia Acute Facial trauma Acute Intubation of airway performed without difficulty Acute Face lacerations Acute
--- NOTE | 2018-12-30 10:09 | PDINTPN ---
Credit Rating Inspector Progress Note Assessment/Plan: ASSESSMENT 83 year old male with mechanical fall resulting in severe bilateral LeFort fractures, airway compromise requiring intubation and anemia. # mechanical fall # severe bilateral LeFort fractures, 1 and 2. Needs close outpatient follow-up and definitive surgical management # respiratory failure. Intubated for airway compromise. Clinically improving but still on ventilator that as of this morning # acute blood-loss anemia # hyponatremia # hypotension PLAN # SBT and wean to extubate # continue Unasyn until able to take Augmentin. To be continued until definitive surgical management # once extubated will obtain formal cognitive eval and speech eval. # hold outpatient antihypertensives # will give IV iron given low normal ferritin and anemia # wean off steroids # Feeding - NPO # Analgesia APAP, fentanyl # Sedation propofol # Thromboprophylaxis - lovenox # Head of bed elevated # Ulcer prophylaxis # Glucose SSI # Skin no skin breakdown # Delirium - delirium precautions Subjective: Remain intubated overnight. Cuff leak present this morning. Adequate tidal volumes on earlier pressure support. Continues on steroids. Will need to follow up with ENT versus OMFS for definitive fracture management. Isolated fever this a.m. No chills, nausea vomiting Objective: Vital Signs Temp Pulse Resp BP Pulse Ox 36.6 C 74 18 125/50 H 97 12/30/18 10:00 12/30/18 10:00 12/30/18 10:00 12/30/18 10:00 12/30/18 10:00 Laboratory Results 12/30/18 04:00 12/30/18 04:00 12/29/18 12/30/18 12/31/18 05:59 05:59 05:59 Intake Total 2641.5 3218.5 Output Total 830 1775 350 Balance 1811.5 1443.5 -350 PT 13.2 SEC (12.0-15.0) 12/28/18 17:27 INR 1.04 (0.83-1.16) 12/28/18 17:27 Physical Exam - Physical Exam General Appearance: WD/WN, alert, obtunded EENT: other (Bilateral ecchymosis and swelling. Barely over able to open eyes) Neck: non-tender, full range of motion Respiratory: lungs clear, normal breath sounds Cardiac/Chest: normal peripheral pulses, regular rate, rhythm Back: Normal inspection, No CVA tenderness Skin: normal color, warm/dry, No cyanosis Extremities: normal range of motion, non-tender, normal inspection, normal capillary refill Neuro/Psych: other (ET tube placed. However following commands. No focal deficits) ICD10 Worksheet Patient Problems: Problems Problem Status Onset Face lacerations Acute Facial trauma Acute Intubation of airway performed without difficulty Acute Fever Acute Hyponatremia Acute Rash of face Acute Weakness Acute
--- NOTE | 2018-12-30 10:38 | TRAUMAPN ---
Trauma Progress Note Assessment/Plan: 83yo M s/p fall c LeFort 1/2 fx, intubated 2/2 airway swelling Neuro: following commands, states pain is controlled. Exam otherwise nonfocal Pulm: Intubated, minimal vent settings. Plan to extubate today which is cleared per ENT Facial Fx: working on outpatient follow up. Irene has contacted surgeon at to have patient fu next week for definitive repair CV: HDS Abdomen: soft, ND, NT. Swallow, then diet Renal: medel, destiney remove once extubated Heme: stable Id: afebrile, on Unasyn, would cont abx until his facial fx are fixed Ortho: facial fx as above Dispo: extubate, MANAGER SERVICING. Cont steroids Objective: Vital Signs Temp Pulse Resp BP Pulse Ox 36.6 C 74 18 125/50 H 97 12/30/18 10:00 12/30/18 10:00 12/30/18 10:00 12/30/18 10:00 12/30/18 10:00 Laboratory Results 12/30/18 04:00 12/30/18 04:00 12/29/18 12/30/18 12/31/18 05:59 05:59 05:59 Intake Total 2641.5 3218.5 Output Total 830 1775 350 Balance 1811.5 1443.5 -350 PT 13.2 SEC (12.0-15.0) 12/28/18 17:27 INR 1.04 (0.83-1.16) 12/28/18 17:27
[2018-12-30] MEDS: ENOXAPARIN 40 MG/0.4 ML SYR SC SCH (13:10)
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
[2018-12-30] MEDS ORDERED: NS IV ONE (15:11)
[2018-12-30] MEDS ORDERED: SODIUM FERRIC GLUCONAT IV ONE (15:11)
[2018-12-30] MEDS ORDERED: SUCROSE IV ONE (15:11)
[2018-12-30] MEDS ORDERED: NS W/ 20 KCl/L 1,000 ML IV SCH (16:00)
[2018-12-31] MEDS: AMPICILLIN/SULBACTAM 1.5 GM in NS 50 ML IV SCH (05:26)
[2018-12-31 05:34] LABS: PLATELET COUNT 98 10^3/uL (150-400)
[2018-12-31] MEDS: CHLORHEXIDINE GLUCONATE 15 ML UDL PO SCH (08:59)
[2018-12-31] MEDS: ENOXAPARIN 40 MG/0.4 ML SYR SC SCH (09:39)
--- NOTE | 2018-12-31 09:52 | PDINTPN ---
Immigration Paralegal Progress Note Assessment/Plan: ASSESSMENT 83 year old male with mechanical fall resulting in severe bilateral LeFort fractures, airway compromise requiring intubation and anemia. # mechanical fall # severe bilateral LeFort fractures, 1 and 2. Needs close outpatient follow-up and definitive surgical management # respiratory failure. Intubated for airway compromise. Extubated 12/30/2018 # dysphagia and aspiration. Continues to fail bedside swallow # acute blood-loss anemia. Stable. Status post IV iron x1 12/30/2018 # hyponatremia # hypotension. Improved PLAN # formal video swallow today # continue Unasyn until able to take Augmentin. To be continued until definitive surgical management # if fails formal video swallow may need to be transferred to hospital where ENT /OMFS can to definitive surgical management. # hold outpatient antihypertensives # stop steroids. # Feeding - NPO # Analgesia APAP, low-dose Oxy # Sedation none # Thromboprophylaxis - lovenox # Head of bed elevated # Ulcer prophylaxis # Glucose SSI # Skin no skin breakdown # Delirium - delirium precautions # okay to transfer to med surg Subjective: Extubated yesterday without incident. Significant facial swelling yesterday but and improved although still present today. Continues on IV Unasyn. Failed bedside swallow yesterday. Initial bedside swallow today encouraging however with subsequent sips E choking coughed excessively. Will undergo formal video swallow later this morning. Has ENT appointment for 1:00 p.m. Today however unlikely to be able to make appointment Objective: Vital Signs Temp Pulse Resp BP Pulse Ox 36.4 C 90 20 116/57 L 96 12/31/18 08:04 12/31/18 08:04 12/31/18 08:04 12/31/18 08:04 12/31/18 08:04 Laboratory Results 12/31/18 05:28 12/31/18 05:28 12/30/18 12/31/18 01/01/19 05:59 05:59 05:59 Intake Total 3218.5 1892.0 Output Total 1775 1975 Balance 1443.5 -83.0 PT 13.2 SEC (12.0-15.0) 12/28/18 17:27 INR 1.04 (0.83-1.16) 12/28/18 17:27 Physical Exam - Physical Exam General Appearance: alert, no apparent distress EENT: other (Bilateral pair oral ecchymoses. Swelling significant improved from yesterday. OP opening improved. No stridor) Neck: non-tender, full range of motion, supple, normal inspection, No thyromegaly Respiratory: chest non-tender, lungs clear, normal breath sounds Cardiac/Chest: normal peripheral pulses, regular rate, rhythm, No edema Abdomen: normal bowel sounds, non-tender Back: Normal inspection Skin: normal color, warm/dry, No cyanosis Extremities: normal range of motion, No pedal edema, No swelling Neuro/Psych: no motor/sensory deficits, alert, normal mood/affect, oriented x 3 ICD10 Worksheet Patient Problems: Problems Problem Status Onset Face lacerations Acute Facial trauma Acute Intubation of airway performed without difficulty Acute Fever Acute Hyponatremia Acute Rash of face Acute Weakness Acute
--- NOTE | 2018-12-31 09:52 | TRAUMAPN ---
Trauma Progress Note Assessment/Plan: 83yo M s/p fall c LeFort 1/2 fx, intubated 2/2 airway swelling, now extubated. Neuro: following commands, states pain is controlled. Exam otherwise nonfocal Pulm: extubated. O2 96% on RA. Facial Fx: patient has outpatient f/u arranged by Dr. Bonilla and scheduled for 1pm today. Uncertain if he will be able to make this. Awaiting repeat swallow eval. If passes, can advance to soft diet and d/c to make appt today. Also, Irene has contacted surgeon at to have patient fu next week for definitive repair. CV: HDS Abdomen: soft, ND, NT. Renal: medel, destiney remove once extubated Heme: stable Id: afebrile, on Unasyn, no abx on d/c per ENT. Ortho: facial fx as above Seen and examined with Dr. Godinez. Dispo: pending swallow eval and ability to eat. Again, has appt today at 1 pm. Will need to reschedule if fails eval. No steroids on d/c per ENT. alert,nad, sitting up in chair facial lac, abrasions and widespread facial terrance and ecchymosis. ctab rrr abd soft ext wwp Objective: Vital Signs Temp Pulse Resp BP Pulse Ox 36.4 C 90 20 116/57 L 96 12/31/18 08:04 12/31/18 08:04 12/31/18 08:04 12/31/18 08:04 12/31/18 08:04 Laboratory Results 12/31/18 05:28 12/31/18 05:28 12/30/18 12/31/18 01/01/19 05:59 05:59 05:59 Intake Total 3218.5 1892.0 Output Total 1775 1975 Balance 1443.5 -83.0 PT 13.2 SEC (12.0-15.0) 12/28/18 17:27 INR 1.04 (0.83-1.16) 12/28/18 17:27
--- NOTE | 2018-12-31 11:43 | PDIAF ---
- Diagnosis Code Status: Full Code - Medication Management Discharge Medications: electronically signed and located in the Home Medication List. - Orders Services needed: Home Care, Registered Nurse, Speech Language Pathologist Home Care Face to Face: I certify that this patient was under my care and that I had the required [id number] encounter meeting the encounter requirements on the discharge day. My findings support the fact that the patient is homebound as defined in Home Care Face to Face Continued: CMS Chapter 7 Medicare Benefits Manual 30.1.1 , The condition of the patient is such that there exists a normal inability to leave home and consequently, leaving home would require a considerable and taxing effort. Diet Recommendation: no restrictions on diet Diet Texture: Dysphagia 1 - Pureed Additional Instructions: Follow up with Dr. Meño Sheehan at [facility] today at 1:00pm to discuss further plans for surgery. [phone] 54[address] [facility] [address] [place] [address] Honey thick liquids and pureed food only. Obtain thickened liquids and/or thickener powder at [facility] and follow instructions to make regular liquids thickened to "honey thick". - Follow Up Care Current Providers and Referrals: Trena Bonilla MD [Medical Doctor] - Patient,NotPresent [Unknown] - As per Instructions
--- NOTE | 2018-12-31 11:43 | PDIAF ---
- Diagnosis Code Status: Full Code - Medication Management Discharge Medications: electronically signed and located in the Home Medication List. - Orders Services needed: Home Care, Registered Nurse, Occupational Therapy, Speech Language Pathologist Home Care Face to Face: I certify that this patient was under my care and that I had the required [id number] encounter meeting the encounter requirements on the discharge day. My findings support the fact that the patient is homebound as defined in Home Care Face to Face Continued: CMS Chapter 7 Medicare Benefits Manual 30.1.1 , The condition of the patient is such that there exists a normal inability to leave home and consequently, leaving home would require a considerable and taxing effort. Diet Recommendation: no restrictions on diet Diet Texture: Dysphagia 1 - Pureed Additional Instructions: Follow up with Dr. Meño Sheehan at [facility] today at 1:00pm to discuss further plans for surgery. [phone] 54[address] [facility] [address] [place] [address] Honey thick liquids and pureed food only. Obtain thickened liquids and/or thickener powder at [facility] and follow instructions to make regular liquids thickened to "honey thick". - Follow Up Care Current Providers and Referrals: Trena Bonilla MD [Medical Doctor] - Patient,NotPresent [Unknown] - As per Instructions
--- NOTE | 2018-12-31 12:02 | PDIAF ---
- Diagnosis Code Status: Full Code - Medication Management Discharge Medications: electronically signed and located in the Home Medication List. - Orders Services needed: Home Care, Registered Nurse, Physical Therapy, Occupational Therapy, Speech Language Pathologist Home Care Face to Face: I certify that this patient was under my care and that I had the required qtra-xc-hyvy encounter meeting the encounter requirements on the discharge day. My findings support the fact that the patient is homebound as defined in Home Care Face to Face Continued: CMS Chapter 7 Medicare Benefits Manual 30.1.1 , The condition of the patient is such that there exists a normal inability to leave home and consequently, leaving home would require a considerable and taxing effort. Diet Recommendation: no restrictions on diet Diet Texture: Dysphagia 1 - Pureed Additional Instructions: Follow up with Dr. Meño Sheehan at [facility] today at 1:00pm to discuss further plans for surgery. [phone] 54[address] [facility] [address] [place] [address] Honey thick liquids and pureed food only. Obtain thickened liquids and/or thickener powder at [facility] and follow instructions to make regular liquids thickened to "honey thick". - Follow Up Care Current Providers and Referrals: Trena Bonilla MD [Medical Doctor] - Patient,NotPresent [Unknown] - As per Instructions
--- NOTE | 2018-12-31 12:07 | ASMTDCNOTE ---
Case Management Discharge Discharge Order Complete? Answers: Yes Patient to Obtain Answers: via Family Medications Transportation Arranged Answers: Family/Friends Faxed Final Orders Answers: Yes Agency/Facility Transfer Answers: Yes Report Printed & Faxed to Receiving Agency Family Notified Answers: Yes Notes: RN Spoke at length with nurse and friend Melvin Discharge Comments Notes: CM, RN and Trauma RNClaudia spoke at length with pt to coordinate dc. Pt has a follow-up at ENT with Dr. Sheehan ([phone]) today at 1:00pm to discuss further plans for surgery which was coordinated by MD's here. Pt is aware as well as his supports that he is only allowed to eat/drink honey thick liquids and RN has done education to him and his supports and spoke at length with his daughter about plan, all parties are agreeable with plan and aware of the risks. Dr. Sheehan will help coordinate follow-up care as needed. has been in contact with pt and ENT. CM arranged Home Care through [facility]. PT/OT/RN/FLUID PUMP OPERATOR and he is aware of follow-up in coming days. Pt reports he has his own walker and friend is bringing it to the hospital. Phone number and address verified. No other CM needs identified at this time. Date Signed: 12/31/2018 12:04 PM Electronically Signed By:FRANK Day
--- NOTE | 2018-12-31 12:11 | ASDISCHSUM ---
Discharge Information Plan Status:Home with Home Health Medically Cleared to Leave: Discharge Date: D/C Disposition:Home Health Service [facility] D/C Disposition:[id number] Projected Discharge Date:12/31/2018 11:00 AM Transportation at D/C:Family Discharge Delay Reason: Follow-Up Date:12/31/2018 11:00 AM Discharge Slot: Final Diagnosis: Placement Information Referral Type:*Home Health Care Services Referral ID:[id number] Provider Name:[facility] Address 1:[address] Phone Number: Address 2: Fax Number: [facility]:[place] Selection Factors: State:[place] Patient Contact Information Contact Name:KAYLA Relationship:Daughter Address: Work Phone: City: [facility] Phone: [facility] Code: Email: Financial Information Financial Class:Medicare Primary Plan Desc:MEDICARE INPATIENT Primary Plan Number:[id number] Secondary Plan Desc:[employer]ARP/MDR SUPPLEMENT Secondary Plan Number:[id number] Assessment Information [facility] CM Progress Note CM Note CM Note Notes: Patient admitted w facial trauma after falling. He also displayed increasing WOB in ED and was subsequently intubated. ENT evaluated and is planning for surgery in 5-10 days when swelling has subsided. Lacerations repaired in ED. Patient lives alone. MD and RN have spoken w his daughter Anny who lives in [place]. We destiney stay in touch w her as discharge needs become clear. PT/OT/DRY PAN FEEDER ordered and pending. Date Signed: 12/29/2018 10:52 AM Electronically Signed By:Maria Isabel Shane RN Case Management Discharge Plan Note Case Management Discharge Discharge Order Complete? Answers: Yes Patient to Obtain Answers: via Family Medications Transportation Arranged Answers: Family/Friends Faxed Final Orders Answers: Yes Agency/Facility Transfer Answers: Yes Report Printed & Faxed to Receiving Agency Family Notified Answers: Yes Notes: RN Spoke at length with nurse and friend Melvin Discharge Comments Notes: CM, RN and Trauma RNClaudia spoke at length with pt to coordinate dc. Pt has a follow-up at ENT with Dr. Sheehan ([phone]) today at 1:00pm to discuss further plans for surgery which was coordinated by MD's here. Pt is aware as well as his supports that he is only allowed to eat/drink honey thick liquids and RN has done education to him and his supports and spoke at length with his daughter about plan, all parties are agreeable with plan and aware of the risks. Dr. Sheehan will help coordinate follow-up care as needed. has been in contact with pt and ENT. CM arranged Home Care through [facility]. PT/OT/RN/DRY PAN FEEDER and he is aware of follow-up in coming days. Pt reports he has his own walker and friend is bringing it to the hospital. Phone number and address verified. No other CM needs identified at this time. Date Signed: 12/31/2018 12:04 PM Electronically Signed By:FRANK Day Intervention Information
--- NOTE | 2018-12-31 12:12 | ASMTLACE ---
LACE Length of stay for Answers: 2 days current admission Acuity / Level of Answers: Yes Care: Did the patient have an inpatient admission? Comorbidities - select Answers: Other Notes: HTN all that apply # of Emergency department Answers: 1-2 visits in the last 6 months Score: 7 Date Signed: 12/31/2018 12:11 PM Electronically Signed By:FRANK Day
[2018-12-31 12:16] VITALS: BP 110/49
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
== END 2018-12-31 12:20 | disposition home health service (06) | DRG 157 ==
LOC: EDUNIT# → F2N 21:51
PROVIDERS: ADMIT Surgery; ATTEND Surgery
DX: S02.412A LeFort II fracture, initial encounter for closed fracture (principal); J96.90 Respiratory failure, unspecified, unspecified whether with hypoxia or hypercapnia; S01.112A Laceration without foreign body of left eyelid and periocular area, initial encounter; S01.81XA Laceration without foreign body of other part of head, initial encounter; V03.10XA Pedestrian on foot injured in collision with car, pick-up truck or van in traffic accident, initial encounter; Y92.414 Local residential or business street as the place of occurrence of the external cause; I12.9 Hypertensive chronic kidney disease with stage 1 through stage 4 chronic kidney disease, or unspecified chronic kidney disease; N18.9 Chronic kidney disease, unspecified; E87.1 Hypo-osmolality and hyponatremia; E16.2 Hypoglycemia, unspecified; D62 Acute posthemorrhagic anemia; F41.9 Anxiety disorder, unspecified
CPT/HCPCS: 92610-GN; 92611-GN; 96374; 97116-GP; 97161-GP; 97165-GO; G0390; J0295; J0330; J1100; J1650; J2060; J2704; J2916; J3010

== ENCOUNTER 2018-12-31 18:00 | Emergency (ER) | payer OTHER, MEDICARE | END 2018-12-31 22:20 | disposition home or self-care (01) ==